=== PATIENT | female | born 1965 | race Caucasian/White ===

== ENCOUNTER 2018-04-15 16:30 | Inpatient (IN) | payer SELFPAY ==
[2018-04-15] VITALS (10 sets, daily range): BP systolic 73–105; BP diastolic 48–78
[~2018-04-15] VITALS: Ht 157.5 cm; Wt 108.0 kg
--- NOTE | 2018-04-15 16:34 | ER Report ---
History and Physical Time Seen By MD: 16:33 (SARAI PATRICK MD) HPI/ROS 53 y/o female with a history of seizures, presents to the ED from Urgent Care with hypoxia, cough, fever, and SOB. Sats in the 60's. Patient does not smoke. Does not drink alcohol. No illicit drugs. Denies abdominal pain. No recent steroids or abx. Remainder of the 14 system rev: Yes (SARAI PATRICK MD) Allergies: Coded Allergies: codeine (Verified Allergy, Severe, 04/15/18) ibuprofen (Verified Allergy, Severe, 04/15/18) morphine (Verified Allergy, Severe, 04/15/18) Home Meds Reported Medications Topiramate (TOPAMAX) 25 Mg Tablet, 25 MG PO QDAY 04/15/18 Reviewed Nurses Notes: Yes Old Medical Records Reviewed: Yes (SARAI PATRICK MD) Hx Smoking: No Smoking Status: Never Smoker Exposure to Second Hand Smoke?: Yes Hx Substance Use Disorder: No Hx Alcohol Use: No (SARAI PATRICK MD) Constitutional Vital Sign - Last 24 Hours 04/15/18 04/15/18 04/15/18 04/15/18 16:35 16:39 16:43 16:43 Temp 100.3 Pulse 114 115 Resp 36 20 B/P (MAP) 102/62 (75) Pulse Ox 84 79 O2 Delivery Non-Rebreather Non-Rebreather O2 Flow Rate 15.0 04/15/18 04/15/18 04/15/18 04/15/18 16:45 16:51 17:00 17:15 Pulse 118 112 114 110 Resp 32 20 24 21 Pulse Ox 79 84 04/15/18 04/15/18 04/15/18 04/15/18 17:17 17:30 17:45 18:00 Pulse 104 97 101 Resp 36 25 36 B/P (MAP) 121/61 (81) 99/82 (88) 70/42 (51) Pulse Ox 85 82 04/15/18 04/15/18 04/15/18 04/15/18 18:02 18:15 18:30 18:45 Pulse 100 101 95 Resp 13 14 27 B/P (MAP) 109/61 (77) 100/62 (75) Pulse Ox 88 86 85 04/15/18 04/15/18 04/15/1826/19 19:00 19:15 19:20 19:30 Pulse 94 92 96 Resp 8 24 34 B/P (MAP) 95/56 (69) 89/50 (63) Pulse Ox 86 85 82 04/15/18 04/15/18 04/15/18 04/15/18 19:32 19:35 19:40 19:50 Pulse 93 91 Resp 30 14 B/P (MAP) 96/54 (68) 93/40 (57) 121/102 (108) Pulse Ox 83 89 04/15/18 04/15/18 04/15/18 04/15/18 20:00 20:05 20:10 20:20 Pulse 90 87 Resp 18 30 B/P (MAP) 95/38 (57) 83/48 (60) 86/46 (59) Pulse Ox 86 85 04/15/18 04/15/18 04/15/18 04/15/18 20:30 20:35 20:40 20:50 Pulse 83 85 Resp 21 9 B/P (MAP) 85/21 (42) 83/52 (62) 78/25 (42) Pulse Ox 85 84 Intake and Output 04/15/18 04/15/18 04/16/18 15:00 23:00 07:00 Intake Total 2250 ml Balance 2250 ml (REJI FLORES MD) Physical Exam General Appearance: The patient is alert, has no immediate need for airway protection and no current signs of toxicity. Eyes: Pupils equal and round no injection. Respiratory: Chest is non tender, lungs are clear but diminished at the bases Cardiac: tachycardia with regular rhythm Gastrointestinal: Abdomen is soft and non tender, no masses, bowel sounds normal. Extremities have full range of motion and are non tender. Skin: No rashes or lesions. DIFFERENTIAL DIAGNOSIS: After history and physical exam differential diagnosis was considered for shortness of breath including but not limited to pulmonary infectious process, COPD, asthma, pulmonary embolus and congestive heart failure. (SARAI PATRICK MD) Medical Decision Making Data Points Result Diagram: 04/15/18 1656 04/15/18 5872 Laboratory Hematology Test 04/15/18 16:56 04/15/18 17:40 04/15/18 17:53 Red Blood Count 4.42 M/uL (4.17-5.56) Mean Corpuscular Volume 86.7 fL (80.0-96.0) Mean Corpuscular Hemoglobin 30.5 pg (26.0-33.0) Mean Corpuscular Hemoglobin Concent 35.1 g/dL (32.0-36.0) Red Cell Distribution Width 14.6 % (11.5-14.5) Mean Platelet Volume 8.9 fL (7.2-11.1) Neutrophils (%) (Auto) 78.7 % (39.4-72.5) Lymphocytes (%) (Auto) 17.4 % (17.6-49.6) Monocytes (%) (Auto) 3.4 % (4.1-12.4) Eosinophils (%) (Auto) 0.0 % (0.4-6.7) Basophils (%) (Auto) 0.5 % (0.3-1.4) Nucleated RBC Relative Count (auto) 0.1 /100WBC Neutrophils # (Auto) 2.1 K/uL (2.0-7.4) Lymphocytes # (Auto) 0.5 K/uL (1.3-3.6) Monocytes # (Auto) 0.1 K/uL (0.3-1.0) Eosinophils # (Auto) 0.0 K/uL (0.0-0.5) Basophils # (Auto) 0.0 K/uL (0.0-0.1) Nucleated RBC Absolute Count (auto) 0.00 K/uL Total Bilirubin 0.4 mg/dl (0.2-1.3) Aspartate Amino Transf (AST/SGOT) 230 U/L (0-35) Alanine Aminotransferase (ALT/SGPT) 70 U/L (0-56) Alkaline Phosphatase 146 U/L (0-126) Total Protein 7.0 g/dl (6.3-8.2) Albumin 3.2 g/dl (3.5-5.0) Lipase 481 U/L (23-300) Influenza Virus Type A (PCR) Positive (NEGATIVE) Influenza Virus Type B (PCR) Negative (NEGATIVE) Chemistry Test 04/15/18 16:56 04/15/18 17:40 04/15/18 17:53 White Blood Count 2.7 k/uL (4.5-11.0) Red Blood Count 4.42 M/uL (4.17-5.56) Hemoglobin 13.5 g/dL (12.0-16.0) Hematocrit 38.3 % (34.0-47.0) Mean Corpuscular Volume 86.7 fL (80.0-96.0) Mean Corpuscular Hemoglobin 30.5 pg (26.0-33.0) Mean Corpuscular Hemoglobin Concent 35.1 g/dL (32.0-36.0) Red Cell Distribution Width 14.6 % (11.5-14.5) Platelet Count 135 K/uL (150-450) Mean Platelet Volume 8.9 fL (7.2-11.1) Neutrophils (%) (Auto) 78.7 % (39.4-72.5) Lymphocytes (%) (Auto) 17.4 % (17.6-49.6) Monocytes (%) (Auto) 3.4 % (4.1-12.4) Eosinophils (%) (Auto) 0.0 % (0.4-6.7) Basophils (%) (Auto) 0.5 % (0.3-1.4) Nucleated RBC Relative Count (auto) 0.1 /100WBC Neutrophils # (Auto) 2.1 K/uL (2.0-7.4) Lymphocytes # (Auto) 0.5 K/uL (1.3-3.6) Monocytes # (Auto) 0.1 K/uL (0.3-1.0) Eosinophils # (Auto) 0.0 K/uL (0.0-0.5) Basophils # (Auto) 0.0 K/uL (0.0-0.1) Nucleated RBC Absolute Count (auto) 0.00 K/uL Total Bilirubin 0.4 mg/dl (0.2-1.3) Aspartate Amino Transf (AST/SGOT) 230 U/L (0-35) Alanine Aminotransferase (ALT/SGPT) 70 U/L (0-56) Alkaline Phosphatase 146 U/L (0-126) Total Protein 7.0 g/dl (6.3-8.2) Albumin 3.2 g/dl (3.5-5.0) Lipase 481 U/L (23-300) Influenza Virus Type A (PCR) Positive (NEGATIVE) Influenza Virus Type B (PCR) Negative (NEGATIVE) (REJI FLORES MD) EKG/Imaging Imaging X-ray: CXR was obtained. I viewed the images myself on the PACS system. My interpretation of the images is: multilobar pneumonia. The radiologist interpretation had no clinically significant variation from this interpretation. (SARAI PATRICK MD) Imaging CT CHEST ABDOMEN PELVIS W/O CON HISTORY: febrile, hypoxic,septic,elevated liver function tests TECHNIQUE: CT imaging was obtained through the chest, abdomen and pelvis without intravenous contrast. One of the following dose optimization techniques was utilized in the performance of this exam: automated exposure control; adjustment of the mA and/or kv according to patient size; or use of iterative reconstruction technique. Specific details can be referenced in the facility's radiology CT exam operational policy. CONTRAST: None COMPARISON: None. FINDINGS: CHEST: Lower neck: Negative. Vessels: Negative. Heart and pericardium: Negative Mediastinum/hilum/lymph nodes: Mild mediastinal lymphadenopathy. Subcarinal l ymph node measures 2.5 x 1.3 cm (image 42). Precarinal lymph node measures 1.9 x 1.2 cm (image 30). Lungs/pleura: Bilateral diffuse bilateral groundglass opacities. No pleural effusion. No pneumothorax. Bones/soft tissues: Negative. Other findings: None significant ABDOMEN/PELVIS: Hepatobiliary: Diffuse hepatic steatosis. Cholecystectomy. Spleen: Mild splenomegaly. Adrenals: 1.3 x 1.1 cm left adrenal gland nodule measuring 2 Hounsfield units consistent with an adenoma. Pancreas: Negative. Kidneys/ureters/bladder: Negative. Bowel/peritoneum/mesentery: Tiny hiatal hernia. Vessels: Negative. Lymph nodes: Negative. Pelvic genitourinary: Negative. Bones/soft tissues: Negative. Other findings: None significant IMPRESSION: 1. Imaging the chest reveals extensive bilateral groundglass opacities with mild lymphadenopathy. Recommend clinical correlation for pneumonia. 2. Imaging of the abdomen and pelvis reveals mild splenomegaly. There is a 1.3 cm left adrenal gland nodule. Report Dictated By: Justin Santoro MD at 04/15/2018 8:13 PM (REJI FLORES MD) ED Course/Re-evaluation ED Course 53-year-old female with both influenza A and multi lobar pneumonia. Patient with transaminitis and leukopenia both consistent with influenza A. Hypoxia improving with nebs and supplemental oxygen. Given abx and Tamiflu. Awaiting CT scan to evaluate abdomen due to elevated lipase, but likely secondary to viral. Will admit for continue abx and supplemental oxygen. Decision to Disposition Date: Apr 15, 2018 Decision to Disposition Time: 18:51 (SARAI PATRICK MD) ED Course I assumed care of this patient from Dr. Patrick at shift change. Patient with pneumonia and sepsis. Having some improvement with oxygen and fluids. Then worsening. We have started Vapotherm and she seems to be improving again. A second liter of fluid to support blood pressure and some improvement again. CT results negative. Admitted to the ICU after discussing with Dr. Escobar. Boris martinez how she will do and may need to consider BiPAP or even intubation if worsening. Decision to Disposition Date: Apr 16, 2018 Decision to Disposition Time: 20:30 (REJI FLORES MD) Depart Departure Latest Vital Signs Vital Signs Date Time Temp Pulse Resp B/P (MAP) Pulse Ox O2 Delivery O2 Flow Rate FiO2 04/15/18 20:50 85 9 78/25 (42) 84 04/15/18 16:43 Non-Rebreather 15.0 04/15/18 16:35 100.3 (REJI FLORES MD) Comment Called to the ICU later to intubate the patient by Dr. Escobar as the patient was worsening despite BiPAP use. Procedure: Rapid sequence intubation. Indication for the procedure was respiratory failure. The patient was preoxygenated with 100% oxygen by bag-valve mask. The patient was given the following IV medications: Versed and succinylcholine. The patient was orally endotracheally intubated using the Glidescope with a 7.5 ETT. Tracheal intubation was confirmed by direct visualization; with misting on the tube; breath sounds were auscultated equally bilaterally; appropriate color change with CO2 detector. The patient was placed on the capnography monitor. Chest X- ray evaluated by Dr. Escobar. The procedure was performed by myself. (REJI FLORES MD) Impression: Primary Impression: Influenza A Additional Impressions: Pneumonia Hypoxia Sepsis Condition: Improved Disposition: Admitted from ER Problem Qualifiers Additional Impressions: Pneumonia Pneumonia type: due to unspecified organism Laterality: bilateral Lung location: lower lobe of lung Qualified Codes: J18.1 - Lobar pneumonia, unspecified organism Sepsis Sepsis type: sepsis due to unspecified organism Qualified Codes: A41.9 - Sepsis, unspecified organism SARAI PATRICK MD Apr 15, 2018 16:34 REJI FLORES MD Apr 16, 2018 04:20
[2018-04-15] MEDS ORDERED: ALBUTEROL/IPRATROPIUM 3 ML NEB ONE (16:40)
[2018-04-15] MEDS ORDERED: NS(*) 0.9% 1000 ML BAG 1,000 ML IV ONE ×3 (16:50→21:10)
[2018-04-15] MEDS ORDERED: ACETAMINOPHEN 500 MG TAB PO ONE (16:50)
[2018-04-15 17:06] LABS: PLATELET COUNT, AUTOMATED 135 K/uL (150-450)
--- NOTE | 2018-04-15 17:28 | RADIOLOGY IMAGING REPORT ---
FACILITY: [facility] - [place] PATIENT NAME: Mounika Chavez : 1965 MR: [id number] V: [id number] EXAM DATE: ORDERING PHYSICIAN: SARAI PATRICK TECHNOLOGIST: Location: [facility] - [place] Patient: Mounika Chavez : 1965 Visit/Account:[id number] Date of Sevice: 04/15/2018 CHEST SINGLE AP HISTORY: fever/cough/sob COMPARISON: None FINDINGS: Cardiomediastinal contours: Normal Lungs and pleura: Patchy bilateral lung infiltrates. No pneumothorax. Bones/soft tissues: Normal Other findings: None significant IMPRESSION: 1. Patchy bilateral lung infiltrates most consistent with pneumonia. Recommend continued radiograph ic surveillance to resolution. Report Dictated By: Justin Santoro MD at 04/15/2018 5:24 PM Report E-Signed By: Justin Santoro MD at 04/15/2018 5:24 PM WSN:[email or web address]
[2018-04-15] MEDS ORDERED: cefTRIAXone 1 GM VIAL IVP ONE (17:40)
[2018-04-15] MEDS ORDERED: AZITHROMYCIN(*) 500 MG 500 MG in NS(*) 0.9% 250 ML BAG 250 ML IVPB ONE (17:40)
--- NOTE | 2018-04-15 18:26 | EKG ---
FACILITY: [facility] PATIENT NAME: MARCIN BAHENA : [id number] MR: [id number] V: [id number] EXAM DATE: ORDERING PHYSICIAN: SARAI PATRICK TECHNOLOGIST: Test Reason : chest pain, SOB Blood Pressure : / mmHG Vent. Rate : 101 BPM Atrial Rate : 101 BPM P-R Int : 130 ms QRS Dur : 074 ms QT Int : 342 ms P-R-T Axes : 062 210 050 degrees QTc Int : 443 ms Sinus tachycardia Diffuse artifact - recommend repeat EKG Abnormal ECG No previous ECGs available Confirmed by DESIREE HAYDEN ([id number]) on 04/15/2018 9:21:17 PM Referred By: Confirmed By:DESIREE HAYDEN
[2018-04-15] MEDS ORDERED: TOPI-119 PO (18:34)
[2018-04-15] MEDS ORDERED: ALBUTEROL 2.5 MG/3 ML NEB NEB ONE (18:40)
[2018-04-15] MEDS ORDERED: OSELTAMIVIR PHOS 75 MG CAP PO ONE ×2 (18:55→23:00)
--- NOTE | 2018-04-15 20:34 | RADIOLOGY IMAGING REPORT ---
FACILITY: [facility] - [place] PATIENT NAME: Mounika Chavez : 1965 MR: [id number] V: [id number] EXAM DATE: ORDERING PHYSICIAN: SARAI PATRICK TECHNOLOGIST: Location: [facility] - [place] Patient: Mounika Chavez : 1965 Visit/Account:[id number] Date of Sevice: 04/15/2018 CT CHEST ABDOMEN PELVIS W/O CON HISTORY: febrile, hypoxic,septic,elevated liver function tests TECHNIQUE: CT imaging was obtained through the chest, abdomen and pelvis without intravenous contras t. One of the following dose optimization techniques was utilized in the performance of this exam: au tomated exposure control; adjustment of the mA and/or kv according to patient size; or use of iterati ve reconstruction technique. Specific details can be referenced in the facility's radiology CT exam o perational policy. CONTRAST: None COMPARISON: None. FINDINGS: CHEST: Lower neck: Negative. Vessels: Negative. Heart and pericardium: Negative Mediastinum/hilum/lymph nodes: Mild mediastinal lymphadenopathy. Subcarinal lymph node measures 2.5 x 1.3 cm (image 42). Precarinal lymph node measures 1.9 x 1.2 cm (image 30). Lungs/pleura: Bilateral diffuse bilateral groundglass opacities. No pleural effusion. No pneumotho rax. Bones/soft tissues: Negative. Other findings: None significant ABDOMEN/PELVIS: Hepatobiliary: Diffuse hepatic steatosis. Cholecystectomy. Spleen: Mild splenomegaly. Adrenals: 1.3 x 1.1 cm left adrenal gland nodule measuring 2 Hounsfield units consistent with an gabriela noma. Pancreas: Negative. Kidneys/ureters/bladder: Negative. Bowel/peritoneum/mesentery: Tiny hiatal hernia. Vessels: Negative. Lymph nodes: Negative. Pelvic genitourinary: Negative. Bones/soft tissues: Negative. Other findings: None significant IMPRESSION: 1. Imaging the chest reveals extensive bilateral groundglass opacities with mild lymphadenopathy. R ecommend clinical correlation for pneumonia. 2. Imaging of the abdomen and pelvis reveals mild splenomegaly. There is a 1.3 cm left adrenal glan d nodule. Report Dictated By: Justin Santoro MD at 04/15/2018 8:13 PM Report E-Signed By: Justin Santoro MD at 04/15/2018 8:29 PM WSN:[email or web address]
[2018-04-15] MEDS ORDERED: KCL 2 MEQ/ML 20 MEQ/10 ML VIAL 20 MEQ in NS(*) 0.9% 1000 ML BAG 1,000 ML IV PRN (21:52)
[2018-04-15] MEDS ORDERED: ACETAMINOPHEN 325 MG TAB PO PRN (21:55)
[2018-04-15] MEDS ORDERED: VANCOMYCIN(*) 1 GM VIAL 1 GM, VANCOMYCIN HCL 0.750 GM VIAL 0.75 GM in NS(*) 0.9% 500 ML... IVPB ONE (22:00)
--- NOTE | 2018-04-15 22:11 | History & Physical ---
History of Present Illness Chief Complaint Cough, short of breath History of Present Illness 53yo female with PMHx significant for seizure following closed head injury. She reports onset of non-productive cough, dyspnea, fevers with chills, myalgias, CALDERON, poor appetite, and diarrhea approximately 48-72 hours ago. Her symptoms continually worsened over this time frame. She denies any rashes or complaints. No abdominal pain. She has had some associated generalized weakness and dizziness/lightheadedness as well. She did not have her flu vaccine this year. She was evaluated in the ER and found to have bilateral infiltrates on CXR, elevated lactate, hypoxia, influenza A screen positive, evidence of dehydration with acute renal failure. She was started on oral Tamiflu and given IV Rocephin and azithromycin. She was also given IV fluid resuscitation. She was recommended for admission. History Problems: (1) Seizure disorder Status: Chronic (2) Closed head injury Status: Chronic (3) History of tubal ligation Status: Resolved Home Meds Reported Medications Topiramate (TOPAMAX) 25 Mg Tablet, 25 MG PO QDAY 04/15/18 Allergies: Coded Allergies: codeine (Verified Allergy, Severe, 04/15/18) ibuprofen (Verified Allergy, Severe, 04/15/18) morphine (Verified Allergy, Severe, 04/15/18) Other Social/Family Hx She is and has 6 grown children. Hx Smoking: No Smoking Status: Never Smoker Exposure to Second Hand Smoke?: Yes Hx Alcohol Use: No Review of Systems Constitutional: Fever, Chills Neurological: Weakness, Dizziness Eyes: No Vision Change, No Loss of Vision ENT: No Hearing Loss Cardiovascular: Chest Pain Respiratory: Shortness of Breath, Cough Gastrointestinal: No Nausea, No Vomiting; Diarrhea; No Hematemesis, No Hematochezia, No Melena, No Abdominal Pain Genitourinary: No Dysuria, No Hematuria, No Urinary Incontinence Musculoskeletal: Pain (diffuse myalgias) Exam Vital Signs Vital Signs Date Time Temp Pulse Resp B/P (MAP) Pulse Ox O2 Delivery O2 Flow Rate FiO2 04/15/18 21:25 82 27 92 04/15/18 21:20 90/65 (73) 04/15/18 21:16 35.0 04/15/18 16:43 Non-Rebreather 04/15/18 16:35 100.3 General Appearance: Alert, Awake Neuro: No Gross deficits Eyes: PERRLA ENT: Oropharynx Clear Neck: No Masses, Other (few small anterior cervical nodes) Cardiovascular: Other (slightly tachycardic regular no murmur) Respiratory: Other (scattered rhonchi with few fine rales bilaterally) Chest: No Tenderness GI: Abd Soft and Non-Tender (BS present) : No CVA Tenderness Extremities: Warm, Perfused Integumentary: Other (no rashes noted) Psych: Alert & Oriented X3 Medical Decision Making Data Points Result Diagram: 04/15/18 1656 04/15/18 1656 Item Value Date Time Influenza Virus Type B (PCR) Negative 04/15/18 175 Influenza Virus Type A (PCR) Positive 04/15/18 1753 Lipase 481 U/L H 04/15/18 1740 Albumin 3.2 g/dl L 04/15/18 1656 Total Protein 7.0 g/dl 04/15/18 1656 Alkaline Phosphatase 146 U/L H 04/15/18 1656 Alanine Aminotransferase (ALT/SGPT) 70 U/L H 04/15/18 1656 Aspartate Amino Transf (AST/SGOT) 230 U/L H 04/15/18 1656 Total Bilirubin 0.4 mg/dl 04/15/18 1656 Calcium Level 7.6 mg/dl L 04/15/18 1656 Lactate 2.2 mmol/L H 04/15/18 1740 EKG / Imaging Imaging PATIENT NAME: Mounika Chavez : 1965 MR: [id number] V: [id number] EXAM DATE: ORDERING PHYSICIAN: SARAI PATRICK TECHNOLOGIST: Location: [facility] Patient: Mounika Chavez : 1965 Visit/Account:[id number] Date of Sevice: 04/15/2018 CHEST SINGLE AP HISTORY: fever/cough/sob COMPARISON: None FINDINGS: Cardiomediastinal contours: Normal Lungs and pleura: Patchy bilateral lung infiltrates. No pneumothorax. Bones/soft tissues: Normal Other findings: None significant IMPRESSION: 1. Patchy bilateral lung infiltrates most consistent with pneumonia. Recommend continued radiographic surveillance to resolution. Report Dictated By: Justin Santoro MD at 04/15/2018 5:24 PM Report E-Signed By: Justin Santoro MD at 04/15/2018 5:24 PM WSN:[email or web address] PATIENT NAME: Mounika Chavez : 1965 MR: [id number] V: [id number] EXAM DATE: [id number] ORDERING PHYSICIAN: SARAI PATRIKC TECHNOLOGIST: Location: [facility] Patient: Mounika Chavez : 1965 Visit/Account:[id number] Date of Sevice: 04/15/2018 CT CHEST ABDOMEN PELVIS W/O CON HISTORY: febrile, hypoxic,septic,elevated liver function tests TECHNIQUE: CT imaging was obtained through the chest, abdomen and pelvis without intravenous contrast. One of the following dose optimization techniques was utilized in the performance of this exam: automated exposure control; adjustment of the mA and/or kv according to patient size; or use of iterative reconstruction technique. Specific details can be referenced in the facility's radiology CT exam operational policy. CONTRAST: None COMPARISON: None. FINDINGS: CHEST: Lower neck: Negative. Vessels: Negative. Heart and pericardium: Negative Mediastinum/hilum/lymph nodes: Mild mediastinal lymphadenopathy. Subcarinal lymph node measures 2.5 x 1.3 cm (image 42). Precarinal lymph node measures 1.9 x 1.2 cm (image 30). Lungs/pleura: Bilateral diffuse bilateral groundglass opacities. No pleural effusion. No pneumothorax. Bones/soft tissues: Negative. Other findings: None significant ABDOMEN/PELVIS: Hepatobiliary: Diffuse hepatic steatosis. Cholecystectomy. Spleen: Mild splenomegaly. Adrenals: 1.3 x 1.1 cm left adrenal gland nodule measuring 2 Hounsfield units consistent with an adenoma. Pancreas: Negative. Kidneys/ureters/bladder: Negative. Bowel/peritoneum/mesentery: Tiny hiatal hernia. Vessels: Negative. Lymph nodes: Negative. Pelvic genitourinary: Negative. Bones/soft tissues: Negative. Other findings: None significant IMPRESSION: 1. Imaging the chest reveals extensive bilateral groundglass opacities with mild lymphadenopathy. Recommend clinical correlation for pneumonia. 2. Imaging of the abdomen and pelvis reveals mild splenomegaly. There is a 1.3 cm left adrenal gland nodule. Report Dictated By: Justin Santoro MD at 04/15/2018 8:13 PM Report E-Signed By: Justin Santoro MD at 04/15/2018 8:29 PM WSN:[email or web address] Assessment and Plan Problems: (1) Pneumonia Status: Acute Assessment & Plan: She has an acute community acquired bilateral pneumonia. She could have influenza as the etiology, but is also at risk for bacterial pneumonia. Will place on Tamiflu 75mg PO BID for at least 5 days. She will also be placed on IV Rocephin, azithromycin, and vancomycin. Will give supplemental oxygen and respiratory treatments as well. Watch closely in the ICU. (2) Influenza A Status: Acute Assessment & Plan: She will be on the Tamiflu 75mg PO BID for a minimum of 5 days. Will have her contacts notified for possible prophylaxis. (3) Dehydration Status: Acute Assessment & Plan: She has received IV fluid resuscitation in the ER. Will continue IV fluids. Watch labs, UOP, lactate. (4) Acute renal failure Status: Acute Assessment & Plan: Due to dehydration and acute infection. Will give generous IV fluids. Watch UOP, labs. (5) Seizure disorder Status: Chronic Assessment & Plan: Continue low dose topiramate. Venous Thromboembolism Antithrombotics Is Pt On Any Antithrombotics?: No Prophylaxis Tx Contraindicated Pharmacological Contraindicati: Low Platelet Count Exam Sepsis Risk: Possible Sepsis Risk Problem Qualifiers (1) Pneumonia: Pneumonia type: due to unspecified organism Laterality: bilateral Lung location: lower lobe of lung Qualified Codes: J18.1 - Lobar pneumonia, unspecified organism DESIREE HAYDEN MD Apr 15, 2018 22:11
[2018-04-15] MEDS ORDERED: VANCOMYCIN 1 GM VIAL ONE (23:18)
[2018-04-15] MEDS ORDERED: OSELTAMIVIR PHOS 75 MG CAP ONE (23:21)
[2018-04-15] MEDS ORDERED: KCL/NS* 20 MEQ/1000 ML PREMIX 1,000 ML IV SCH (23:30)
[2018-04-15] MEDS ORDERED: NS(*) 0.9% 250 ML BAG 250 ML ONE (23:44)
[2018-04-15] MEDS ORDERED: CALCIUM GLUC(*)10% 100MG/ML VL 1,000 MG in NS(*) 0.9% 100 ML BAG 100 ML IVPB ONE (23:50)
[2018-04-15] MEDS ORDERED: IV BOLUS 500 ML IVSOL IV ONE (23:50)
[2018-04-15] MEDS: NYSTATIN 100,000 U/GM PWD 15GM TP SCH (23:55)
[2018-04-16] VITALS (123 sets, daily range): BP systolic 62–174; BP diastolic 40–136
[2018-04-16] MEDS ORDERED: VANCOMYCIN(*) 1 GM VIAL 1 GM, VANCOMYCIN HCL 0.750 GM VIAL 0.75 GM in NS(*) 0.9% 500 ML... IVPB ONE
[2018-04-16] MEDS ORDERED: VANCOMYCIN 1 GM VIAL ONE (00:17)
[2018-04-16] MEDS ORDERED: NS(*) 0.9% 500 ML BAG 500 ML ONE (00:22)
[2018-04-16] MEDS ORDERED: NS(*) 0.9% 100 ML BAG 100 ML ONE (02:46)
[2018-04-16] MEDS ORDERED: MIDAZOLAM 50 MG/10 ML VIAL IV ONE (02:57)
[2018-04-16] MEDS ORDERED: NS(*) 0.9% 250 ML BAG 250 ML ONE (02:58)
[2018-04-16] MEDS: MIDAZOLAM 50 MG/10 ML VIAL 250 MG in NS(*) 0.9% 250 ML BAG 200 ML IV PRN (03:08)
--- NOTE | 2018-04-16 03:14 | Miscellaneous Provider Note ---
Miscellaneous Provider Note Note Patient had fairly sudden onset of increased dyspnea, tachypnea, hypoxia with large amounts of thin almost frothy sputum. We were unable to maintain adequate oxygen saturations with high flow O2. It appeared she was at "near respiratory failure" and would need intubation and mechanical ventilation. This was accomplished with the help of Dr. Fitzgerald. Post-intubation film shows good tube placement with increased bilateral infiltrates. It appears she will need paralytic agent in addition to sedation to maintain concordance with the ventilator. Will follow ABGs closely to monitor ventilation. DESIREE HAYDEN MD Apr 16, 2018 03:14
--- NOTE | 2018-04-16 03:21 | RADIOLOGY IMAGING REPORT ---
FACILITY: [facility] PATIENT NAME: Mounika Chavez : 1965 MR: [id number] V: [id number] EXAM DATE: ORDERING PHYSICIAN: DESIREE HAYDEN TECHNOLOGIST: Location: [facility] [place] Patient: Mounika Chavez : 1965 Visit/Account:[id number] Date of Sevice: 04/16/2018 Study: Single portable view of the chest. Indication: Status post intubation Comparison study: April 15, 2018 Technique: Single portable AP view the chest demonstrates the presence of an endotracheal tube with t he tip 4 cm above the level of the jese. There are extensive bilateral confluent infiltrates presen t. This has worsened as compared to the previous study. There is no evidence of pleural effusion or p neumothorax. IMPRESSION: Status post intubation. There are worsening bilateral confluent diffuse infiltrates prese nt. Report Dictated By: Landry Major at 04/16/2018 2:55 AM Report E-Signed By: Landry Major at 04/16/2018 2:57 AM WSN:[id number]
--- NOTE | 2018-04-16 03:44 | RADIOLOGY IMAGING REPORT ---
FACILITY: [facility] - [place], [place] PATIENT NAME: Mounika Chavez : 1965 MR: [id number] V: [id number] EXAM DATE: ORDERING PHYSICIAN: DESIREE HAYDEN TECHNOLOGIST: Location: [facility] Patient: Mounika Chavez : 1965 Visit/Account:[id number] Date of Sevice: 04/16/2018 AP CHEST 04/16/2018 3:17 AM. INDICATION: Nasogastric tube placement. COMPARISON: Same-day radiograph. . FINDINGS: Endotracheal tube terminates in the mid thoracic trachea. Esophagogastric tube terminates in the sto mach with all sideholes in the stomach lumen. Extensive bilateral mixed opacification similar to leonel or. No definite pleural effusion or pneumothorax. Heart size is unchanged. IMPRESSION: Esophagogastric tube appears appropriately positioned, otherwise not significantly change d. Report Dictated By: Kayode Walter MD at 04/16/2018 3:39 AM Report E-Signed By: Kayode Walter MD at 04/16/2018 3:41 AM WSN:[id number]
[2018-04-16] MEDS ORDERED: NS(*) 0.9% 1000 ML BAG 1,000 ML ONE ×3 (04:04→05:07)
[2018-04-16] MEDS ORDERED: ACETAMINOPHEN(*)1000 MG/100 ML 100 ML IVPB ONE (04:37)
--- NOTE | 2018-04-16 04:53 | RADIOLOGY IMAGING REPORT ---
FACILITY[place] [facility] [place] PATIENT NAME: Mounika Chavez : 1965 MR: [id number] V: [id number] EXAM DATE: ORDERING PHYSICIAN: DESIREE HAYDEN TECHNOLOGIST: Location: [facility] - [place] Patient: Mounika Chavez : 1965 Visit/Account:[id number] Date of Sevice: 04/16/2018 AP CHEST 04/16/2018 3:15 AM. INDICATION: Catheter placement. COMPARISON: Same-day radiograph. FINDINGS/IMPRESSION: Endotracheal and esophagogastric tubes appear appropriately positioned. New right subclavian central venous catheter terminates near the superior cavoatrial junction. Bilateral mixed opacification is not significantly changed. No definite pleural effusion or pneumothorax. Heart size is unchanged. Report Dictated By: Kayode Walter MD at 04/16/2018 4:47 AM Report E-Signed By: Kayode Walter MD at 04/16/2018 4:49 AM WSN:[id number]
--- NOTE | 2018-04-16 05:19 | Procedure Note ---
Central Line Procedure Note Consent Signed: No Central Line Lumen: Triple Central Line Procedure: Chlorhexidine Prep, Sterile Drapes Applied, Sterile Dressing Applied Central Line Position: R Subclavian Anesthesia Used: 1% Lidocaine CC's of Anesthesia: 2 Complications: None Central Line Post Position: Sutured, Confirmed Blood Return, Position Confirmed w/CXR SKINNY PATTERSON MD Apr 16, 2018 05:19
--- NOTE | 2018-04-16 05:22 | Procedure Note ---
ART Line Procedure Note Consent Signed: No ART Line Indication: Hemodynamic Monitoring, Other (multiple ABG's) ART Line Lumen: Single Line Procedure: Chlorhexidine Prep, Sterile Drapes Applied, Sterile Dressing Applied Complications: None Line Post Position: Confirmed Blood Return Comment Multiple attempts at right radial arterial line were unsuccessful despite US guidance. Left radial arterial line successful with single attempt. Good waveform. Secured with OP site and tape. SKINNY PATTERSON MD Apr 16, 2018 05:22
[2018-04-16] MEDS ORDERED: FUROSEMIDE 20 MG/2 ML VIAL ONE (05:33)
[2018-04-16] MEDS ORDERED: FUROSEMIDE 20 MG/2 ML VIAL IVP ONE (05:35)
[2018-04-16] MEDS ORDERED: ALBUMIN HUMAN 5% 250 ML BTL 250 ML IVPB ONE ×2 (05:50→09:20)
[2018-04-16] MEDS: ROCURONIUM BR(*)10 MG/ML 10 ML 500 MG in NS(*) 0.9% 500 ML BAG 450 ML IVPB SCH ×2 (05:52→20:38)
[2018-04-16] MEDS: NS(*) 0.9% 500 ML BAG 500 ML ONE ×2 (05:52)
[2018-04-16] MEDS ORDERED: NOREPINE BITAR* 4 MG/4 ML AMP 4 MG in D5W(*) 250 ML BAG 246 ML IV PRN (05:55)
[2018-04-16] MEDS ORDERED: LEVOPHED KIT (*) 1 IVSOL 1 KIT IV ONE (05:56)
[2018-04-16 05:59] LABS: PLATELET COUNT, AUTOMATED 125 K/uL (150-450)
[2018-04-16] MEDS ORDERED: HYDROCORTISONE 100 MG/2 ML IVP SCH (06:00)
[2018-04-16] MEDS ORDERED: CALCIUM GLUC(*)10% 100MG/ML VL 1,000 MG in NS(*) 0.9% 100 ML BAG 100 ML IVPB ONE (07:00)
[2018-04-16] MEDS ORDERED: MAGNESIUM SUL* 2 GM/50 ML IVPB 50 ML IVPB ONE (08:00)
[2018-04-16] MEDS ORDERED: OSELTAMIVIR PHOS 30 MG CAP FT SCH (09:00)
[2018-04-16] MEDS ORDERED: OSELTAMIVIR PHOS 75 MG CAP PO SCH (09:00)
[2018-04-16] MEDS ORDERED: TOPIRAMATE 25 MG TAB PO SCH (09:00)
[2018-04-16] MEDS ORDERED: OSELTAMIVIR PHOS 30 MG CAP PO SCH (09:00)
[2018-04-16] MEDS: OSELTAMIVIR PHOS 75 MG CAP FT SCH ×2 (09:10→21:34)
[2018-04-16] MEDS: TOPIRAMATE 25 MG TAB FT SCH (09:12)
[2018-04-16] MEDS: HYDROCORTISONE 100 MG/2 ML IVP SCH ×2 (09:17→17:08)
[2018-04-16] MEDS ORDERED: HYDROCORTISONE 100 MG/2 ML ONE (09:22)
[2018-04-16] MEDS: NYSTATIN 100,000 U/GM PWD 15GM TP SCH ×2 (10:17→21:35)
[2018-04-16] MEDS ORDERED: KCL/NS* 20 MEQ/1000 ML PREMIX 1,000 ML IV PRN (10:20)
[2018-04-16] MEDS: ORAL SUCTION/CHLORHX/SWAB KIT MT SCH ×2 (11:15→21:34)
[2018-04-16] MEDS: VANCOMYCIN(*) 1 GM VIAL 1 GM, VANCOMYCIN (*) 0.5 GM VIAL 0.25 GM in NS(*) 0.9% 250 ML B... IVPB SCH (11:48)
--- NOTE | 2018-04-16 12:16 | Medical Nutrition Therapy ---
Nutrition Anthropometrics Height (Inches): 62.00 Height (Calculated Centimeters: 157.645272 Weight (Pounds): 212 Weight (Calculated Kilograms): 96.162 BMI: 38.8 Juan A Nutrition Score: Adequate Juan A Nutrition Risk Score: 17 Dietary Referral Nutrition Risk Factors: Nutrition Risk Comment: Physical Findings Physical Appearance: Obese BMI 30-39 Skin Appearance Skin Appearance: Edema Edema Location Modifier: Edema Location: Type of Edema: Degree of Edema: Gastrointestinal Symptoms GI Symtoms: Tube Present: Bowel Sounds: Recent Bowel Pattern: Stool Characteristics: Nutritional Diagnosis Nutritional Risk Acuity 1: Acute/ES Renal, Pulm Fail Vent Nutritional Risk Acuity 2: Pr Appetite > 3d Nutritional Acuity: 1-High Nutrition Diagnosis: Inadequate Food Intake Nutrition Etiology: Physiological Causes Nutrition Problem/Etiology/Sym: AEB NPO and on mech vent Energy Requirement: 1985 ([place]) Protein Requirement: 76 (.8gm/kg) Fluid Requirement: 2400 (25ml/kg) Diet Type: NPO (Nothing by Mouth) Nutrition Intervention: Incr diet as tolerated Nutrition Monitoring & Eval Nutrition Goals: Eat 75-100% Meal RD Patient Assessment Time: [address] Assessment Type: RD Assessment Patient Nutrition Acuity: 1-High Follow Up Date: Apr 18, 2018 Nutritional Comment: Pt admitted for pneumonia with influenza A and ARF. Pt currently NPO and on mech vent. Nutr significant labs: alb 2.3, BUN 31, creatinine 1.3, BG 158-210. Pt reported 3 day poor appetite prior to admit. BMI is in class 2 obesity range. Pt does not have dx of diabetes but random BG > 200 is diagnosis for diabetes. Will cont to monitor. CARA CUNNINGHAM Apr 16, 2018 12:16
--- NOTE | 2018-04-16 12:51 | RADIOLOGY IMAGING REPORT ---
FACILITY: [facility] PATIENT NAME: Mounika Chavez : 1965 MR: [id number] V: [id number] EXAM DATE: ORDERING PHYSICIAN: DESIREE HAYDEN TECHNOLOGIST: Location: [facility] - [place] Patient: Mounika Chavez : 1965 Visit/Account:[id number] Date of Sevice: 04/16/2018 CHEST SINGLE AP HISTORY: Respiratory failure. COMPARISON: Chest x-ray April 16, 2018 at 0409 hours. FINDINGS: Cardiomediastinal contours: The heart maybe mildly enlarged. Lungs and pleura: Again noted are bilateral peripheral findings of parenchymal disease/groundglass de nsity. There is probably bibasilar atelectasis and small bilateral pleural effusions as well. The fin dings are worrisome for pneumonia, but entities such as pulmonary edema may be a consideration. Bones/soft tissues: There are no findings of a fracture. Catheters: The endotracheal tube, right clavian vein catheter and nasogastric tube are in stable posi tion. IMPRESSION: 1. Cardiomegaly with stable bilateral parenchymal infiltrates. 2. Stable position of endotracheal tube, nasogastric tube and right subclavian vein catheter. Report Dictated By: Paco Glasgow MD at 04/16/2018 12:45 PM Report E-Signed By: Paco Glasgow MD at 04/16/2018 12:46 PM WSN:[id number]
[2018-04-16] MEDS ORDERED: METOPROLOL TART 5 MG/5 ML VIAL IVP ONE (13:00)
--- NOTE | 2018-04-16 14:15 | Pharmacy Note ---
Vancomycin Management Note Vanco Dosing Note Pharmacy Services Pharmacokinetic Dosing Consult, Vancomycin Pharmacy has been consulted for dosing and monitoring of vancomycin for JOSEF (53 YO FEMALE) for SEPSIS (indication). Pertinent Past Medical History: * Antibiotics prior to admission; UNKNOWN {YES/NO/UNKNOWN} Additional Antimicrobials: AZITHROMYCIN 500MG IV QD Start 04/15/18 CEFTRIAXONE 1G IV PUSH QD Start 04/15/18 TAMIFLU 75MG BID Start 04/15/18 Patient Information: Height (cm): 157.5 Actual Body Weight (ABW): 96.2KG Pertinent Lab Tests WHITE BLOOD COUNT 2.5 NEUTROPHILS 1.9 BLOOD UREA NITROGEN 31 SCR 1.3 Culture Results: BLOOD * URINE * SPUTUM * WOUND * Assessment: CrCl 40 Renal function is IMPROVING (Stable, improving) Vancomycin Monitoring Assessment Goal Vancomycin Trough Level: 15-20 Plan: 1) Vancomycin 25 mg/kg loading dose (based on ABW): 1750 mg IV x 1 was given 04/16/18 at 0000 2) Vancomycin maintenance dose (based on ABW): 1250mg Q12H was ordered for maintenance 3) Vancomycin monitoring: Renal function is improving, however this patient is obese and at risk for accumulation. Recommended checking a random level before the 3rd dose. Hospitalist was agreeable with that plan since patient's renal function is near the cutoff between Q24/Q12 dosing and improving. Random Vanco level ordered for 04/16/18 at 2300 CHANG NEWMAN Apr 16, 2018 13:58
--- NOTE | 2018-04-16 15:59 | Hospitalist Progress Note ---
Subjective Progress Notes Subjective 53F with acute hypoxic respiratory failure. Remains intubated and sedated, clinical picture consistent with ARDS. Physical Exam Vital Signs Date Time Temp Pulse Resp B/P (MAP) Pulse Ox O2 Delivery O2 Flow Rate FiO2 04/16/18 15:21 90.0 04/16/18 13:39 81 04/16/18 07:15 98.7 04/16/18 06:35 108 30 75/42 (53) Mechanical Ventilator 04/16/18 01:00 40.0 Intake and Output 04/16/18 06:59 Intake Total 4056 ml Output Total 900 ml Balance 3156 ml Intake Oral 0 ml IV Total 4056 ml Output Urine Total 900 ml # Bowel Movements 1 Neuro: No Gross deficits Cardiovascular: Normal Rhythm & Peripheral Pulses Respiratory: Other (intubated, sedated, paralyzed) GI: Soft and Non-Tender Extremities: Soft and Non Tender, Warm, Pulses, Perfused Integumentary: Skin Intact without Lesion / Mass Result Diagram: 04/16/18 0520 04/16/18 0420 Assessment and Plan Problems: (1) ARDS (adult respiratory distress syndrome) Status: Acute Assessment & Plan: CXR bilateral patchy infiltrate, difficulties oxygenating after intubation. SIMV 6ml/kg (Vt 0.3), PEEP 18, rate 34, FIO2 0.9. ABG shows C O2 retention as expected, permissive hypercapnia goal pH 7.25, pO2 is within accepted range per ARDSnet. Plateau borderline at 30. Begin sodium bicarb to improve acidosis while kidneys regulate, anticipate improvement over 36-48 hours. (2) Pneumonia Status: Acute Assessment & Plan: She has an acute community acquired bilateral pneumonia. She could have influenza as the etiology, but is also at risk for bacterial pneumonia. Tamiflu 75mg PO BID for at least 5 days as well as IV Rocephin, azithromycin, and vancomycin. Clinical picture consistent with ARDS now intubated and sedated. (3) Influenza A Status: Acute Assessment & Plan: She will be on the Tamiflu 75mg PO BID for a minimum of 5 days. (4) Dehydration Status: Acute Assessment & Plan: She has received IV fluid resuscitation in the ER. Will continue IV fluids. Watch labs, UOP, lactate. (5) Acute renal failure Status: Acute Assessment & Plan: Due to dehydration and acute infection. Improved. (6) Seizure disorder Status: Chronic Assessment & Plan: Continue low dose topiramate. (7) Hypokalemia Assessment & Plan: Replete PRN. (8) Hypocalcemia Assessment & Plan: Corrected to 8.0 for albumin this am, worsened with de creasing pH despite Ca replacement today. Will check EKG. Exam Sepsis Risk: Severe Sepsis Risk Problem Qualifiers (1) Pneumonia: Pneumonia type: due to unspecified organism Laterality: bilateral Lung location: lower lobe of lung Qualified Codes: J18.1 - Lobar pneumonia, unspecified organism CHERELLE PORTER DO Apr 16, 2018 15:59
[2018-04-16] MEDS: cefTRIAXone 1 GM VIAL IVP SCH (16:15)
[2018-04-16] MEDS: AZITHROMYCIN(*) 500 MG 500 MG in NS(*) 0.9% 250 ML BAG 250 ML IVPB SCH (16:21)
[2018-04-16] MEDS: SODIUM BICAR 8.4%* 50 MEQ/50ML 150 MEQ in D5W(*) 1000 ML BAG 1,000 ML IV SCH (16:25)
--- NOTE | 2018-04-16 18:55 | EKG ---
FACILITY: [facility] PATIENT NAME: MARCIN BAHENA : [id number] MR: [id number] V: [id number] EXAM DATE: ORDERING PHYSICIAN: CHERELLE CROWELL TECHNOLOGIST: Test Reason : hypocalcemia Blood Pressure : / mmHG Vent. Rate : 108 BPM Atrial Rate : 108 BPM P-R Int : 138 ms QRS Dur : 074 ms QT Int : 348 ms P-R-T Axes : 075 056 057 degrees QTc Int : 466 ms Sinus tachycardia Low voltage QRS Borderline ECG When compared with ECG of 15-APR-2018 17:26, Criteria for Inferior infarct are no longer present Confirmed by Cherelle Espino ([id number]) on 04/16/2018 10:49:56 PM Referred By: Confirmed By:Cherelle Crowell
[2018-04-17] VITALS (107 sets, daily range): BP systolic 86–134; BP diastolic 45–75
[2018-04-17] MEDS: VANCOMYCIN(*) 1 GM VIAL 1 GM, VANCOMYCIN (*) 0.5 GM VIAL 0.25 GM in NS(*) 0.9% 250 ML B... IVPB SCH (00:23)
[2018-04-17] MEDS: HYDROCORTISONE 100 MG/2 ML IVP SCH ×3 (00:23→17:36)
[2018-04-17] MEDS: SODIUM BICAR 8.4%* 50 MEQ/50ML 150 MEQ in D5W(*) 1000 ML BAG 1,000 ML IV SCH (01:22)
[2018-04-17 06:29] LABS: PLATELET COUNT, AUTOMATED 97 K/uL (150-450)
[2018-04-17] MEDS: ALBUTEROL/IPRATROPIUM 3 ML NEB NEB SCH ×3 (08:37→17:36)
[2018-04-17] MEDS ORDERED: ENOXAPARIN 40 MG/0.4ML SYR SC SCH (09:00)
[2018-04-17] MEDS: PANTOPRAZOLE SOD 40 MG IV VIAL IVP SCH (09:13)
[2018-04-17] MEDS: TOPIRAMATE 25 MG TAB FT SCH (09:18)
[2018-04-17] MEDS: OSELTAMIVIR PHOS 75 MG CAP FT SCH ×2 (09:19→20:24)
[2018-04-17] MEDS: ORAL SUCTION/CHLORHX/SWAB KIT MT SCH ×2 (09:20→20:25)
[2018-04-17] MEDS: NYSTATIN 100,000 U/GM PWD 15GM TP SCH ×2 (09:21→20:25)
--- NOTE | 2018-04-17 10:36 | Hospitalist Progress Note ---
Subjective Progress Notes Subjective This patient was admitted for respiratory failure secondary to influenza. She has remained paralyzed on the ventilator overnight. Patient Complains of: Cardiovascular: No: Chest Pain Respiratory: No: Shortness of Breath Physical Exam Vital Signs Date Time Temp Pulse Resp B/P (MAP) Pulse Ox O2 Delivery O2 Flow Rate FiO2 04/17/18 09:57 60.0 04/17/18 08:38 104 04/17/18 08:38 91 Mechanical Ventilator 04/17/18 06:30 34 95/61 (72) 04/17/18 06:20 98.6 04/16/18 01:00 40.0 Intake and Output 04/17/18 07:00 Intake Total 5187.7 ml Output Total 2065 ml Balance 3122.7 ml IV Total 3382.7 ml Other 1805 ml Output Urine Total 1565 ml Gastric Drainage Total 500 ml Neuro: Other (Paralyzed.) Cardiovascular: Regular Rate and Rhythm Respiratory: Other (Bilateral breath sounds present.) Extremities: No Edema Integumentary: No Cyanosis Result Diagram: 04/17/18 0520 04/17/18 0520 Item Value Date Time Arterial Blood pH 7.23 L 04/17/18 0942 Arterial Blood Partial Pressure CO2 70 mmHg *H 04/17/18 0942 Arterial Blood Partial Pressure O2 59 mmHg L 04/17/18 0942 Arterial Blood HCO3 29 mmol/L H 04/17/18 0942 Item Value Date Time Blood Culture - Preliminary Resulted 04/15/18 1804 Blood Peripheral Draw NO GROWTH AFTER 2 DAYS, REINCUBATED Blood Culture - Preliminary Resulted 04/15/18 1656 Blood Peripheral Draw NO GROWTH AFTER 2 DAYS, REINCUBATED Assessment and Plan Problems: (1) Influenza A Status: Acute Assessment & Plan: She did test positive for influenza A. She has been started on Tamiflu. (2) ARDS (adult respiratory distress syndrome) Status: Acute Assessment & Plan: She does have bilateral patchy infiltrates and difficulties oxygenating after intubation. She is currently paralyzed and on AC. We are adjusting her ventilator settings, and will try to wean off the rocuronium today. (3) Bacterial pneumonia Assessment & Plan: Bilateral infiltrates are noted on her chest x-ray. She was started on empiric antibiotics given the severity of her illness. Cultures are pending. (4) Sepsis Status: Acute Assessment & Plan: She did have a fever and elevated lactate level. She is on IV fluids and stress dose hydrocortisone. (5) Acute renal failure Status: Acute Assessment & Plan: She did have a bump in her creatinine overnight. We have increased her IV fluids. (6) Seizure disorder Status: Chronic Assessment & Plan: She is on chronic treatment with topiramate, which is being given through the feeding tube. (7) Hypokalemia Assessment & Plan: Resolved. (8) Hypocalcemia Assessment & Plan: She is scheduled to receiving calcium today. Exam Sepsis Risk: Severe Sepsis Risk Problem Qualifiers (1) Sepsis: Sepsis type: sepsis due to unspecified organism Qualified Codes: A41.9 - Sepsis, unspecified organism NALINI YOUNG DO Apr 17, 2018 10:36
[2018-04-17] MEDS: NS(*) 0.9% 1000 ML BAG 1,000 ML IV PRN ×2 (10:52→20:39)
[2018-04-17] MEDS ORDERED: CALCIUM GLUC(*)10% 100MG/ML VL 1,000 MG in NS(*) 0.9% 100 ML BAG 100 ML IVPB ONE (11:15)
[2018-04-17] MEDS: INSULIN HUM LISPRO 100 UN/ML 3 ML VIAL SUBQ PRN ×2 (12:09→18:28)
[2018-04-17] MEDS: ROCURONIUM BR(*)10 MG/ML 10 ML 500 MG in NS(*) 0.9% 500 ML BAG 450 ML IVPB SCH (12:17)
[2018-04-17] MEDS ORDERED: ROCURONIUM BR(*)10 MG/ML 10 ML 500 MG in NS(*) 0.9% 500 ML BAG 450 ML IVPB PRN (13:15)
[2018-04-17] MEDS: cefTRIAXone 1 GM VIAL IVP SCH (17:35)
[2018-04-17] MEDS: AZITHROMYCIN(*) 500 MG 500 MG in NS(*) 0.9% 250 ML BAG 250 ML IVPB SCH (17:50)
[2018-04-17] MEDS: ACETAMINOPHEN(*)1000 MG/100 ML 100 ML IVPB PRN (20:24)
[2018-04-17] MEDS: MIDAZOLAM 50 MG/10 ML VIAL 250 MG in NS(*) 0.9% 250 ML BAG 200 ML IV PRN (20:39)
[2018-04-18] VITALS (90 sets, daily range): BP systolic 88–129; BP diastolic 37–75
[2018-04-18] MEDS: HYDROCORTISONE 100 MG/2 ML IVP SCH ×3 (00:32→17:15)
[2018-04-18] MEDS: INSULIN HUM LISPRO 100 UN/ML 3 ML VIAL SUBQ PRN ×4 (00:32→18:02)
[2018-04-18] MEDS: ALBUTEROL/IPRATROPIUM 3 ML NEB NEB SCH ×4 (05:17→17:05)
[2018-04-18] MEDS: NS(*) 0.9% 1000 ML BAG 1,000 ML IV PRN ×4 (06:04→18:38)
--- NOTE | 2018-04-18 06:32 | RADIOLOGY IMAGING REPORT ---
FACILITY: [facility] PATIENT NAME: Mounika Chavez : 1965 MR: [id number] V: [id number] EXAM DATE: ORDERING PHYSICIAN: NALINI YOUNG TECHNOLOGIST: Location: [facility] Patient: Mounika Chavez : 1965 Visit/Account:[id number] Date of Sevice: 04/18/2018 AP CHEST 04/18/2018 6:00 AM. INDICATION: Intubated. RAD COMPARISON: 04/16/2018. FINDINGS: Support line and tubes are unchanged. Lung expansion is decreased with increased bibasilar atelectas is. Other bilateral mixed opacification and probable small pleural effusions are similar to prior. No pneumothorax. Heart size is likely unchanged. IMPRESSION: Decreased expansion with increased atelectasis, otherwise unchanged. Report Dictated By: Kayode Walter MD at 04/18/2018 6:26 AM Report E-Signed By: Kayode Walter MD at 04/18/2018 6:28 AM [id number]
[2018-04-18 06:36] LABS: PLATELET COUNT, AUTOMATED 99 K/uL (150-450)
[2018-04-18] MEDS: PANTOPRAZOLE SOD 40 MG IV VIAL IVP SCH (09:06)
[2018-04-18] MEDS: OSELTAMIVIR PHOS 75 MG CAP FT SCH (09:09)
[2018-04-18] MEDS: ORAL SUCTION/CHLORHX/SWAB KIT MT SCH ×2 (09:09→21:32)
[2018-04-18] MEDS: TOPIRAMATE 25 MG TAB FT SCH (09:09)
[2018-04-18] MEDS: NYSTATIN 100,000 U/GM PWD 15GM TP SCH ×2 (09:10→21:31)
--- NOTE | 2018-04-18 10:07 | Medical Nutrition Therapy ---
Nutrition Anthropometrics Height (Inches): 62.00 Height (Calculated Centimeters: 157.195566 Weight (Pounds): 223 Weight (Calculated Kilograms): 101.293 BMI: 38.8 Juan A Nutrition Score: Very Poor Juan A Nutrition Risk Score: 8 Dietary Referral Nutrition Risk Factors: Nutrition Risk Comment: Physical Findings Physical Appearance: Obese BMI 30-39 Skin Appearance Skin Appearance: Edema Edema Location Modifier: Edema Location: Type of Edema: Degree of Edema: Gastrointestinal Symptoms GI Symtoms: Tube Present: OG Bowel Sounds: Recent Bowel Pattern: Stool Characteristics: Nutritional Diagnosis Nutritional Risk Acuity 1: Acute/ES Renal, Pulm Fail Vent Nutritional Risk Acuity 2: Pr Appetite > 3d Nutritional Acuity: 1-High Nutrition Diagnosis: Increased Nutrient Needs Nutrition Etiology: Physiological Causes Nutrition Problem/Etiology/Sym: AEB on mech vent Energy Requirement: 1985 ([place]) Protein Requirement: 76 (.8gm/kg) Fluid Requirement: 2400 (25ml/kg) Diet Type: NPO (Nothing by Mouth), Tube Feeding (TF) Nutrition Intervention: Nutrition support, Incr diet as tolerated Nutritional Support Current Enteral / Parental: Tube Feeding Tube Feeding Formulas: Glucerna 1cal/ml-Diabetic Tube Feeding Supplement Streng: Full Feeding Route: FT Placed Oralgastric Rate: initiate at 30ml/hr increase 10ml q 4 hrs to final rate 80ml/hr Current Duration: 24 Current Calories: 1920 (based on final rate) Current Protein: 80 (based on final rate) Nutrition Monitoring & Eval Nutritional Goals Comment: enteral nutrtion will meet nutr needs until oral intake can meet needs. RD Patient Assessment Time: [address] Assessment Type: Nutrition Support Consult Patient Nutrition Acuity: 1-High Follow Up Date: Apr 21, 2018 Nutritional Comment: Pt admitted for pneumonia with influenza A and ARF. Pt currently NPO and on mech vent. Nutr significant labs: alb 2.3, BUN 31, creatinine 1.3, BG 158-210. Pt reported 3 day poor appetite prior to admit. BMI is in class 2 obesity range. Pt does not have dx of diabetes but random BG > 200 is diagnosis for diabetes. Will cont to monitor. BK 04/18 Enteral nutrition initiated. Final rate of 80ml/hr Glucerna will meet 97% est kcal and 105% est protein needs. BMI is in class 3 obesity range. Goal is to provide adequate kcal but not excessive. will cont to monitor. CARA CUNNINGHAM Apr 18, 2018 10:07
--- NOTE | 2018-04-18 11:22 | Hospitalist Progress Note ---
Subjective Progress Notes Subjective 53M admitted for acute hypoxic respiratory failure due to influenza. Intubated and sedated. Improved oxygenation on decreased PEEP. Physical Exam Vital Signs Date Time Temp Pulse Resp B/P (MAP) Pulse Ox O2 Delivery O2 Flow Rate FiO2 04/18/18 10:00 98 04/18/18 09:49 90 Mechanical Ventilator 75.0 04/18/18 09:49 30 04/18/18 09:30 128/64 (85) 04/18/18 08:00 99.8 04/16/18 01:00 40.0 Intake and Output 04/18/18 06:59 Intake Total 3331 ml Output Total 1245 ml Balance 2086 ml IV Total 3331 ml Output Urine Total 1095 ml Gastric Drainage Total 150 ml General Appearance: Afebrile Neuro: No Gross deficits ENT: Normal Cardiovascular: Normal Rhythm & Peripheral Pulses Respiratory: Other (intubated, ventilated) GI: Soft and Non-Tender : Normal (+ Cruz) Extremities: Soft and Non Tender, Warm, Pulses, Perfused Result Diagram: 04/18/1852104/18/18521 Assessment and Plan Problems: (1) Influenza A Status: Acute Assessment & Plan: She did test positive for influenza A. She has been started on Tamiflu. (2) ARDS (adult respiratory distress syndrome) Status: Acute Assessment & Plan: She does have bilateral patchy infiltrates and difficulties oxygenating after intubation. She is currently paralyzed and on AC. We are adjusting her ventilator settings, and will try to wean off the rocuronium today. (3) Bacterial pneumonia Assessment & Plan: Bilateral infiltrates are noted on her chest x-ray. She was started on empiric antibiotics given the severity of her illness. Cultures are pending. (4) Sepsis Status: Acute Assessment & Plan: She did have a fever and elevated lactate level. She is on IV fluids and stress dose hydrocortisone. (5) Acute renal failure Status: Acute Assessment & Plan: She did have a bump in her creatinine overnight. We have increased her IV fluids. (6) Seizure disorder Status: Chronic Assessment & Plan: She is on chronic treatment with topiramate, which is being given through the feeding tube. (7) Hypokalemia Assessment & Plan: Resolved. (8) Hypocalcemia Assessment & Plan: She is scheduled to receiving calcium today. Exam Sepsis Risk: Severe Sepsis Risk Problem Qualifiers (1) Sepsis: Sepsis type: sepsis due to unspecified organism Qualified Codes: A41.9 - Seps is, unspecified organism CHERELLE PORTER DO Apr 18, 2018 11:21
[2018-04-18] MEDS: PROPOFOL(*)1000 MG/100 ML VIAL 100 ML IV PRN (13:31)
--- NOTE | 2018-04-18 13:53 | Antimicrobial Stewardship ---
Antimicrobial Time Out Antimicrobial Stewardship MD Service: Hospitalist Indications: CAP Antimicrobial Used AZITHROMYCIN, CEFTRIAXONE, TAMIFLU Start Date: Apr 15, 2018 Culture Results: No (PENDING) Eligible for PO Conversion Eligable for PO Conversion: No Reviewed with Provider Reviewed w/ Provider on Rounds: No Comments Comments PATIENT IS ON MECHANICAL VENTILATOR, POSITIVE RESULT FOR INFLUENZA AND IMAGINING SHOWS POSSIBLE BACTERIAL PNEUMONIA CULTURE PENDING CHANG NEWMAN Apr 18, 2018 13:53
[2018-04-18] MEDS: cefTRIAXone 1 GM VIAL IVP SCH (17:18)
[2018-04-18] MEDS: AZITHROMYCIN(*) 500 MG 500 MG in NS(*) 0.9% 250 ML BAG 250 ML IVPB SCH (17:31)
[2018-04-18] MEDS: OSELTAMIVIR PHOS 30 MG CAP FT SCH (21:31)
[2018-04-18] MEDS: ACETAMINOPHEN(*)1000 MG/100 ML 100 ML IVPB PRN (21:32)
[2018-04-19] VITALS (84 sets, daily range): BP systolic 82–140; BP diastolic 42–92
[2018-04-19] MEDS: HYDROCORTISONE 100 MG/2 ML IVP SCH ×3 (01:18→22:07)
[2018-04-19] MEDS: ALBUTEROL/IPRATROPIUM 3 ML NEB NEB SCH ×4 (04:51→17:00)
[2018-04-19 05:19] LABS: PLATELET COUNT, AUTOMATED 105 K/uL (150-450)
[2018-04-19] MEDS: INSULIN HUM LISPRO 100 UN/ML 3 ML VIAL SUBQ PRN ×4 (06:13→17:48)
--- NOTE | 2018-04-19 06:19 | RADIOLOGY IMAGING REPORT ---
FACILITY: [facility] PATIENT NAME: Mounika Chavez : 1965 MR: [id number] V: [id number] EXAM DATE: ORDERING PHYSICIAN: CHERELLE CROWELL TECHNOLOGIST: Location: [facility] Patient: Mounika Chavez : 1965 Visit/Account:[id number] Date of Sevice: 04/19/2018 Study: CHEST SINGLE AP Indication: Intubated Comparison study: 04/18/2018 Findings: Portable chest demonstrates the presence of an endotracheal tube with tip 4 cm above the le blair of the jese. There is a central venous catheter with tip overlying the cavoatrial junction. The re is a nasogastric tube present with the tip descending below the level of film. There are bilateral pleural effusions present. There are diffuse bilateral infiltrates present. These appear to be unchanged, given change in film technique. There is no evidence of pneumothorax. IMPRESSION: No change as compared to the previous study. Report Dictated By: Landry Major at 04/19/2018 6:13 AM Report E-Signed By: Landry Major at 04/19/2018 6:14 AM [id number]
--- NOTE | 2018-04-19 08:59 | Hospitalist Progress Note ---
Subjective Progress Notes Subjective Sedated on ventilator. Low grade fever. Physical Exam Vital Signs Date Time Temp Pulse Resp B/P (MAP) Pulse Ox O2 Delivery O2 Flow Rate FiO2 04/19/18 08:00 70.0 04/19/18 07:45 90 04/19/18 07:30 99.8 29 135/65 (88) 90 Mechanical Ventilator 04/16/18 01:00 40.0 Intake and Output 04/19/18 07:00 Intake Total 4580 ml Output Total 920 ml Balance 3660 ml IV Total 3539 ml Tube Feeding 851 ml Tube Irrigant 190 ml Output Urine Total 920 ml General Appearance: Other (sedated on ventilator) ENT: Other (ET/OG tubes in place) Neck: No Masses Cardiovascular: Other (Regular no murmur noted) Respiratory: Other (fairly clear with few rhonchi/coarse ventilator sounds) Chest: Other (Right subclavian site looks good) GI: Other (Soft/BS minimal) Extremities: Warm, Perfused, Edema (trace dependent) Integumentary: Skin Intact without Lesion / Mass Result Diagram: 04/19/1845004/19/18 0451 Item Value Date Time Blood Gas Puncture Site Line 04/19/18 0452 Blood Gas Patient Temperature 99.8 DEGREES 04/19/18 0452 Arterial Blood pH 7.39 04/19/18 0452 Arterial Blood Partial Pressure CO2 37 mmHg 04/19/18 0452 Arterial Blood Partial Pressure O2 60 mmHg 04/19/18 0452 Arterial Blood HCO3 22 mmol/L 04/19/18 0452 Arterial Blood Oxygen Saturation 90 % L 04/19/18 0452 Arterial Blood Base Excess -3.0 mmol/L 04/19/18 0452 Miguel Angel Test Nt avail 04/19/18 0452 Oxygen Liters/Minute 70 04/19/18 0452 Albumin 2.1 g/dl L 04/19/18 0451 Total Protein 4.7 g/dl L 04/19/18 0451 Alkaline Phosphatase 268 U/L H 04/19/18 0451 Alanine Aminotransferase (ALT/SGPT) 48 U/L 04/19/18 0451 Aspartate Amino Transf (AST/SGOT) 110 U/L H 04/19/18 0451 Total Bilirubin 0.3 mg/dl 04/19/18 0451 Calcium Level 6.4 mg/dl *L 04/19/18 0451 Imaging PATIENT NAME: Mounika Chavez : 1965 MR: [id number] V: [id number] EXAM DATE: ORDERING PHYSICIAN: CHERELLE CROWELL TECHNOLOGIST: Location: [facility] Patient: Mounika Chavez : 1965 Visit/Account:[id number] Date of Sevice: 04/19/2018 Study: CHEST SINGLE AP Indication: Intubated Comparison study: 04/18/2018 Findings: Portable chest demonstrates the presence of an endotracheal tube with tip 4 cm above the level of the jese. There is a central venous catheter with tip overlying the cavoatrial junction. There is a nasogastric tube present with the tip descending below the level of film. There are bilateral pleural effusions present. There are diffuse bilateral infiltrates present. These appear to be unchanged, given change in film technique. There is no evidence of pneumothorax. IMPRESSION: No change as compared to the previous study. Report Dictated By: Landry Major at 04/19/2018 6:13 AM Report E-Signed By: Landry Major at 04/19/2018 6:14 AM [id number] Assessment and Plan Problems: (1) Influenza A Status: Acute Assessment & Plan: She did test positive for influenza A. She has been started on Tamiflu at renal dosing. Her temperature has improved, but still some low grade elevation. She may be an influenza pneumonia as well. Clinically, she has made some improvements. (2) ARDS (adult respiratory distress syndrome) Status: Acute Assessment & Plan: She does have persistent bilateral patchy infiltrates and had significant difficulties oxygenating after intubation. We have been adjusting her ventilator settings and have been able to wean her FiO2 and PEEP down slowly. She is on the Tamiflu and IV Rocephin/azithromycin/steroids. (3) Bacterial pneumonia Assessment & Plan: Bilateral infiltrates are noted on her chest x-ray. She was started on empiric IV antibiotics given the severity of her illness. Cultures are negative thus far. Suspect this is most likely influenza pneumonia with associated ARDS. (4) Sepsis Status: Acute Assessment & Plan: She did have a fever (improved) and elevated lactate level (resolved). She is on IV fluids and stress dose hydrocortisone. (5) Acute renal failure Status: Acute Assessment & Plan: She did have a increase in her creatinine. We have increased her IV fluids. I suspect she is third spacing a fair amount of fluid. Her CVP is 6. Will try some albumin to increase intravascular volume. Watch BPs, CVPs, UOP, and labs closely. (6) Seizure disorder Status: Chronic Assessment & Plan: She is on chronic treatment with topiramate, which is being given through the feeding tube. (7) Hypokalemia Assessment & Plan: Resolved. (8) Hypocalcemia Assessment & Plan: She is receiving calcium intermittently. Central Venous Access Medical Necessity for Access: Hemodynamic Monitoring, IV Access, Medication Administration Exam Sepsis Risk: Severe Sepsis Risk Problem Qualifiers (1) Sepsis: Sepsis type: sepsis due to unspecified organism Qualified Codes: A41.9 - Sepsis, unspecified organism DESIREE HAYDEN MD Apr 19, 2018 08:59
[2018-04-19] MEDS: PANTOPRAZOLE SOD 40 MG IV VIAL IVP SCH (09:07)
[2018-04-19] MEDS: OSELTAMIVIR PHOS 30 MG CAP FT SCH ×2 (09:07→22:08)
[2018-04-19] MEDS: TOPIRAMATE 25 MG TAB FT SCH (09:07)
[2018-04-19] MEDS: ALBUMIN HUMAN 5% 250 ML BTL 250 ML IVPB SCH ×2 (09:08→22:08)
[2018-04-19] MEDS: NYSTATIN 100,000 U/GM PWD 15GM TP SCH ×2 (09:08→22:08)
[2018-04-19] MEDS: ORAL SUCTION/CHLORHX/SWAB KIT MT SCH ×2 (09:08→20:18)
[2018-04-19] MEDS: ENOXAPARIN 40 MG/0.4ML SYR SC SCH (09:08)
[2018-04-19] MEDS: PROPOFOL(*)1000 MG/100 ML VIAL 100 ML IV PRN ×2 (11:28→21:50)
--- NOTE | 2018-04-19 12:43 | Medical Nutrition Therapy ---
Nutrition Anthropometrics Height (Inches): 62.00 Height (Calculated Centimeters: 157.063648 Weight (Pounds): 230 Weight (Calculated Kilograms): 104.525 BMI: 38.8 Juan A Nutrition Score: Adequate Juan A Nutrition Risk Score: 13 Dietary Referral Nutrition Risk Factors: Nutrition Risk Comment: Physical Findings Physical Appearance: Obese BMI 30-39 Skin Appearance Skin Appearance: Edema Edema Location Modifier: Both Edema Location: Generalized Type of Edema: Degree of Edema: Gastrointestinal Symptoms GI Symtoms: Tube Present: OG Bowel Sounds: Recent Bowel Pattern: Stool Characteristics: Nutritional Diagnosis Nutritional Risk Acuity 1: Acute/ES Renal, Pulm Fail Vent Nutritional Risk Acuity 2: Pr Appetite > 3d Nutritional Acuity: 1-High Nutrition Diagnosis: Increased Nutrient Needs Nutrition Etiology: Physiological Causes Nutrition Problem/Etiology/Sym: AEB on mech vent Energy Requirement: 1985 ([place]) Protein Requirement: 76 (.8gm/kg) Fluid Requirement: 2400 (25ml/kg) Diet Type: NPO (Nothing by Mouth), Tube Feeding (TF) Nutrition Intervention: Nutrition support, Incr diet as tolerated Nutritional Support Current Enteral / Parental: Tube Feeding Tube Feeding Formulas: Glucerna 1cal/ml-Diabetic Tube Feeding Supplement Streng: Full Feeding Route: FT Placed Oralgastric Rate: initiate at 30ml/hr increase 10ml q 4 hrs to final rate 75ml/hr Current Duration: 24 Current Calories: 1800 (based on final rate) Current Protein: 75 (based on final rate) Current Lipids Calories: 238 (propofol) Total Current Calories: 2038 Nutrition Monitoring & Eval Nutritional Goals Comment: Enteral nutrtion will meet nutr needs until oral intake can meet needs. RD Patient Assessment Time: [address] Assessment Type: Nutrition Support Consult Patient Nutrition Acuity: 1-High Follow Up Date: Apr 21, 2018 Nutritional Comment: Pt admitted for pneumonia with influenza A and ARF. Pt currently NPO and on mech vent. Nutr significant labs: alb 2.3, BUN 31, creatinine 1.3, BG 158-210. Pt reported 3 day poor appetite prior to admit. BMI is in class 2 obesity range. Pt does not have dx of diabetes but random BG > 200 is diagnosis for diabetes. Will cont to monitor. BK 04/18 Enteral nutrition initiated. Final rate of 80ml/hr Glucerna will meet 97% est kcal and 105% est protein needs. BMI is in class 3 obesity range. Goal is to provide adequate kcal but not excessive. will cont to monitor. JOSUÉ 04/19 Enteral nutrition declinied to 75ml/hr because pt is recieving additional kcal from propofol to avoid overfeeding. Glucernal + propofol is meeting 103% est kcal and 100% est protein needs. Will cont to monitor.CARA CUNNINGHAM Apr 19, 2018 12:43
[2018-04-19] MEDS: ACETAMINOPHEN(*)1000 MG/100 ML 100 ML IVPB PRN (13:11)
[2018-04-19] MEDS ORDERED: CALCIUM GLUC(*)10% 100MG/ML VL 1,000 MG in NS(*) 0.9% 100 ML BAG 100 ML IVPB ONE (16:15)
[2018-04-19] MEDS: cefTRIAXone 1 GM VIAL IVP SCH (17:09)
[2018-04-19] MEDS: AZITHROMYCIN(*) 500 MG 500 MG in NS(*) 0.9% 250 ML BAG 250 ML IVPB SCH (17:19)
[2018-04-19] MEDS: NS(*) 0.9% 1000 ML BAG 1,000 ML IV PRN (21:50)
[2018-04-20] VITALS (94 sets, daily range): BP systolic 100–295; BP diastolic 57–215
[2018-04-20] MEDS: NS(*) 0.9% 1000 ML BAG 1,000 ML IV PRN (00:04)
[2018-04-20] MEDS: INSULIN HUM LISPRO 100 UN/ML 3 ML VIAL SUBQ PRN ×2 (00:15→05:50)
[2018-04-20] MEDS: PROPOFOL(*)1000 MG/100 ML VIAL 100 ML IV PRN ×5 (04:49→22:38)
[2018-04-20 05:02] LABS: PLATELET COUNT, AUTOMATED 99 K/uL (150-450)
[2018-04-20] MEDS: ALBUTEROL/IPRATROPIUM 3 ML NEB NEB SCH ×4 (05:03→17:42)
--- NOTE | 2018-04-20 05:41 | NUR ---
glucose on am labdraw 176, covered per jah scale Addendum: 04/20/18 at 0541 by MATTHEW COVARRUBIAS RN Amended: Links added.
--- NOTE | 2018-04-20 06:17 | RADIOLOGY IMAGING REPORT ---
FACILITY: [facility] - [place], [place] PATIENT NAME: Mounika Chavez : 1965 MR: [id number] V: [id number] EXAM DATE: ORDERING PHYSICIAN: DESIREE HAYDEN TECHNOLOGIST: Location: [facility] Patient: Mounika Chavez : 1965 Visit/Account:[id number] Date of Sevice: 04/20/2018 Study: CHEST SINGLE AP Indication: Pneumonia, intubated Comparison study: April 19, 2018 Findings: AP portable chest demonstrates presence of an endotracheal tube with the tip 4 cm above the level of the jese. There is a PICC line with the tip overlying the cavoatrial junction. There is a nasogastric tube with the tip descending below the level of the film. There are bilateral pleural effusions and basilar infiltrates present. There is no evidence of pneumo thorax. IMPRESSION: There is no significant change as compared to the previous study. Report Dictated By: Landry Major at 04/20/2018 6:12 AM Report E-Signed By: Landry Major at 04/20/2018 6:14 AM WSN:[id number]
[2018-04-20] MEDS: PANTOPRAZOLE SOD 40 MG IV VIAL IVP SCH (08:36)
[2018-04-20] MEDS: ENOXAPARIN 40 MG/0.4ML SYR SC SCH (08:36)
[2018-04-20] MEDS: ALBUMIN HUMAN 5% 250 ML BTL 250 ML IVPB SCH ×2 (08:36→20:36)
[2018-04-20] MEDS: ORAL SUCTION/CHLORHX/SWAB KIT MT SCH ×2 (08:36→20:37)
[2018-04-20] MEDS: OSELTAMIVIR PHOS 30 MG CAP FT SCH ×2 (08:37→20:36)
[2018-04-20] MEDS: TOPIRAMATE 25 MG TAB FT SCH (08:37)
[2018-04-20] MEDS: NYSTATIN 100,000 U/GM PWD 15GM TP SCH ×2 (08:37→20:37)
[2018-04-20] MEDS: NS 0.45%(*) 1000 ML BAG 1,000 ML IV PRN (08:48)
--- NOTE | 2018-04-20 10:27 | Hospitalist Progress Note ---
Subjective Progress Notes Subjective This patient was admitted for respiratory failure secondary to influenza. She had no acute events overnight. Patient Complains of: Cardiovascular: No: Chest Pain Respiratory: No: Shortness of Breath Physical Exam Vital Signs Date Time Temp Pulse Resp B/P (MAP) Pulse Ox O2 Delivery O2 Flow Rate FiO2 04/20/18 09:48 80 04/20/18 09:45 25 119/82 (94) 91 Mechanical Ventilator 60.0 04/20/18 09:30 99.5 Intake and Output 04/20/18 07:00 Intake Total 4735.9 ml Output Total 1190 ml Balance 3545.9 ml IV Total 3381.9 ml Tube Feeding 1179 ml Tube Irrigant 175 ml Output Urine Total 1190 ml # Bowel Movements 1 Neuro: Other (Sedated.) Eyes: PERRLA Cardiovascular: Regular Rate and Rhythm Respiratory: Clear to Auscultation GI: Soft and Non-Tender Extremities: Edema Integumentary: No Cyanosis Result Diagram: 04/20/18 0453 04/20/18 0453 Item Value Date Time Arterial Blood pH 7.48 H 04/20/18 0502 Arterial Blood Partial Pressure CO2 28 mmHg L 04/20/18 0502 Arterial Blood Partial Pressure O2 68 mmHg 04/20/18 0502 Arterial Blood HCO3 21 mmol/L 04/20/18 0502 Item Value Date Time Blood Culture - Preliminary Resulted 04/15/18 1804 Blood Peripheral Draw NO GROWTH AFTER 4 DAYS, REINCUBATED Blood Culture - Preliminary Resulted 04/15/18 1656 Blood Peripheral Draw NO GROWTH AFTER 4 DAYS, REINCUBATED Imaging Chest x-ray reviewed. Assessment and Plan Problems: (1) Influenza A Status: Acute Assessment & Plan: She did test positive for influenza A. She has been on Tamiflu at renal dosing. (2) ARDS (adult respiratory distress syndrome) Status: Acute Assessment & Plan: She does have persistent bilateral patchy infiltrates and had significant difficulties oxygenating after intubation. We have been adjus ting her ventilator settings and have been able to wean her FiO2 and PEEP down slowly. (3) Bacterial pneumonia Assessment & Plan: Bilateral infiltrates are noted on her chest x-ray. She has been on ceftriaxone and azithromycin, but continues to have low grade fevers. We have switched her to Zosyn today. (4) Sepsis Status: Acute Assessment & Plan: She did present with fever and elevated lactate level. She also required an infusion of norepinephrine for a while. She is now off vasop ressors and IV steroids have been discontinued. (5) Acute renal failure Status: Acute Assessment & Plan: She did have a increase in her creatinine. She was started on an albumin infusion. Her antibiotics are renal dosed. (6) Seizure disorder Status: Chronic Assessment & Plan: She is on chronic treatment with topiramate, which is being given through the feeding tube. (7) Hypokalemia Assessment & Plan: Resolved. (8) Hypocalcemia Assessment & Plan: She is receiving calcium intermittently. Central Venous Access Medical Necessity for Access: Hemodynamic Monitoring, IV Access, Medication Administration Exam Sepsis Risk: Severe Sepsis Risk Problem Qualifiers (1) Sepsis: Sepsis type: sepsis due to unspecified organism Qualified Codes: A41.9 - Sepsis, unspecified organism NALINI YOUNG DO Apr 20, 2018 10:27
--- NOTE | 2018-04-20 11:30 | Antimicrobial Stewardship ---
Antimicrobial Stewardship Empiricly appropriate: Yes (Antibiotic switch to Zosyn secondary to continued fevers) Support empiric regimen: Yes (Completed 5 days of Ceftriaxone + azithromyin --> CAP) Renal/Hepatic dosing: Yes (CrCl ~32-46ml/min depending on IBW or adj BW) Clinically stable/improving: No (Pt still febrile and without significant improvement, will re-escalate antibiotics) IV to PO Opportunity: No Determine cumulative duration: HAP/VAP PNA--today is day 1 Determine standard duration: 7 days, depending on response Comment 53 yo F with a CAP secondary to influenza A, started on Ceftriaxone/Azithromycin and has completed a full course. She was also started on Tamiflu and has completed a full course, but based on her lack of improvement, will continue Tamiflu as she is still with fever. Will broaden antibiotics and treat like a HAP/VAP. Will double cover for Pseudomonas with Zosyn + Levofloxacin. Will monitor and follow. 04/15/18--Tamiflu started 04/15/18-04/19/18-- Ceftriaxone + Azithromycin (completed 5 days = full course) 04/20/18- Start Zosyn + Levofloxacin renal dosing for potential HAP/VAP/lack of improvement Svitlana Adair, PharmD, BCOP SVITLANA ADAIR Apr 20, 2018 11:30
[2018-04-20] MEDS: PIPERACILLIN/TAZO*3.375GM VIAL 3.375 GM in NS(*) 0.9% 100 ML ADDVANT BAG 100 ML IVPB SCH ×3 (11:43→23:31)
[2018-04-20] MEDS ORDERED: LEVOFLOXACIN/D5W 750 MG/150 ML 150 ML IVPB SCH (13:00)
[2018-04-20] MEDS: ASCORBIC ACID 500 MG TAB FT SCH ×2 (13:15→20:36)
[2018-04-20] MEDS ORDERED: FUROSEMIDE 20 MG/2 ML VIAL IVP ONE ×2 (14:25→21:30)
[2018-04-20] MEDS: HYDROmorphone HCL 2 MG/ML SDV IVP PRN (19:27)
[2018-04-21] VITALS (80 sets, daily range): BP systolic 88–154; BP diastolic 46–90
[2018-04-21] MEDS: HYDROmorphone HCL 2 MG/ML SDV IVP PRN (00:26)
[2018-04-21] MEDS: PROPOFOL(*)1000 MG/100 ML VIAL 100 ML IV PRN ×6 (02:31→21:49)
[2018-04-21] MEDS: ACETAMINOPHEN(*)1000 MG/100 ML 100 ML IVPB PRN ×3 (03:22→21:09)
[2018-04-21] MEDS: ALBUTEROL/IPRATROPIUM 3 ML NEB NEB SCH ×4 (04:33→17:00)
--- NOTE | 2018-04-21 05:40 | RADIOLOGY IMAGING REPORT ---
FACILITY: [facility] - [place] PATIENT NAME: Mounika Chavez : 1965 MR: [id number] V: [id number] EXAM DATE: ORDERING PHYSICIAN: NALINI YOUNG TECHNOLOGIST: Location: [facility] Patient: Mounika Chavez : 1965 Visit/Account:[id number] Date of Sevice: 04/21/2018 AP CHEST 04/21/2018 6:00 AM. INDICATION: pneumonia, intubated COMPARISON: Yesterday. FINDINGS: Support line and tubes are unchanged. Suspected bilateral pleural effusions, not significant change. Bilateral mixed opacification appears increased at the right the upper lung. No pneumothorax. Heart size is unchanged. IMPRESSION: Persistent bilateral mixed opacification, likely increased at the right upper lung. Pers istent bilateral pleural effusions. Report Dictated By: Kayode Walter MD at 04/21/2018 5:31 AM Report E-Signed By: Kayode Walter MD at 04/21/2018 5:32 AM WSN:[id number]
[2018-04-21 05:45] LABS: PLATELET COUNT, AUTOMATED 98 K/uL (150-450)
[2018-04-21] MEDS: PIPERACILLIN/TAZO*3.375GM VIAL 3.375 GM in NS(*) 0.9% 100 ML ADDVANT BAG 100 ML IVPB SCH ×3 (06:03→17:49)
[2018-04-21] MEDS: INSULIN HUM LISPRO 100 UN/ML 3 ML VIAL SUBQ PRN ×2 (06:10→12:05)
[2018-04-21] MEDS: fentaNYL CITR 250 MCG/5 ML AMP 1,500 MCG in NS 0.9% 150 ML BAG 120 ML IV PRN (08:43)
[2018-04-21] MEDS: ALBUMIN HUMAN 5% 250 ML BTL 250 ML IVPB SCH ×2 (09:20→21:09)
[2018-04-21] MEDS: NS 0.45%(*) 1000 ML BAG 1,000 ML IV PRN ×3 (09:25→21:25)
[2018-04-21] MEDS: PANTOPRAZOLE SOD 40 MG IV VIAL IVP SCH (09:27)
[2018-04-21] MEDS: NYSTATIN 100,000 U/GM PWD 15GM TP SCH ×2 (09:29→21:09)
[2018-04-21] MEDS: ASCORBIC ACID 500 MG TAB FT SCH ×3 (09:29→21:09)
[2018-04-21] MEDS: ORAL SUCTION/CHLORHX/SWAB KIT MT SCH ×2 (09:29→21:09)
[2018-04-21] MEDS: TOPIRAMATE 25 MG TAB FT SCH (09:29)
[2018-04-21] MEDS: OSELTAMIVIR PHOS 30 MG CAP FT SCH ×2 (09:29→21:09)
[2018-04-21] MEDS: KCL (*) 20 MEQ/100 ML PREMIX 100 ML IV SCH ×2 (09:30→11:03)
[2018-04-21] MEDS: ENOXAPARIN 40 MG/0.4ML SYR SC SCH (09:31)
[2018-04-21] MEDS ORDERED: FUROSEMIDE 20 MG/2 ML VIAL IVP SCH ×2 (10:30→22:30)
--- NOTE | 2018-04-21 10:46 | Medical Nutrition Therapy ---
Nutrition Anthropometrics Height (Inches): 62.00 Height (Calculated Centimeters: 157.734803 Weight (Pounds): 237 Weight (Calculated Kilograms): 107.501 BMI: 38.8 Juan A Nutrition Score: Adequate Juan A Nutrition Risk Score: 13 Dietary Referral Nutrition Risk Factors: Nutrition Risk Comment: Physical Findings Physical Appearance: Obese BMI 30-39 Skin Appearance Skin Appearance: Edema Edema Location Modifier: Both Edema Location: Generalized Type of Edema: Degree of Edema: Gastrointestinal Symptoms GI Symtoms: Tube Present: OG Bowel Sounds: Recent Bowel Pattern: Stool Characteristics: Nutritional Diagnosis Nutritional Risk Acuity 1: Acute/ES Renal, Pulm Fail Vent Nutritional Risk Acuity 2: Pr Appetite > 3d Nutritional Acuity: 1-High Nutrition Diagnosis: Increased Nutrient Needs Nutrition Etiology: Physiological Causes Nutrition Problem/Etiology/Sym: AEB on mech vent Energy Requirement: 1985 ([place]) Protein Requirement: 76 (.8gm/kg) Fluid Requirement: 2400 (25ml/kg) Diet Type: NPO (Nothing by Mouth), Tube Feeding (TF) Nutrition Intervention: Nutrition support, Incr diet as tolerated Nutritional Support Current Enteral / Parental: Tube Feeding Tube Feeding Formulas: Glucerna 1cal/ml-Diabetic Tube Feeding Supplement Streng: Full Feeding Route: FT Placed Oralgastric Rate: initiate at 30ml/hr increase 10ml q 4 hrs to final rate 75ml/hr Current Duration: 24 Current Calories: 1800 (based on final rate) Current Protein: 75 (based on final rate) Current Lipids Calories: 238 (propofol) Total Current Calories: 2038 Nutrition Monitoring & Eval RD Patient Assessment Time: [address] Assessment Type: Nutrition Support Consult Patient Nutrition Acuity: 1-High Follow Up Date: Apr 24, 2018 Nutritional Comment: Pt admitted for pneumonia with influenza A and ARF. Pt currently NPO and on mech vent. Nutr significant labs: alb 2.3, BUN 31, creatinine 1.3, BG 158-210. Pt reported 3 day poor appetite prior to admit. BMI is in class 2 obesity range. Pt does not have dx of diabetes but random BG > 200 is diagnosis for diabetes. Will cont to monitor. BK 04/18 Enteral nutrition initiated. Final rate of 80ml/hr Glucerna will meet 97% est kcal and 105% est protein needs. BMI is in class 3 obesity range. Goal is to provide adequate kcal but not excessive. will cont to monitor. BK 04/19 Enteral nutrition declinied to 75ml/hr because pt is recieving additional kcal from propofol to avoid overfeeding. Glucernal + propofol is meeting 103% est kcal and 100% est protein needs. Will cont to monitor.BK 04/21 Pt cont on enteral nutrition. Glucerna was up to 75ml/hr however pt had 165ml residual and it was pulled back to 60ml/hr with no residuals reported. Pt is on 27mls/hr propofol provideing 713 kcal. TF at 60 ml/hr + propofol meets 110% est kcal but only 79% est protein needs. If pt continues on high propofol rate, pt may benefit from higher protein enteral formula. Wt up 22kg since admit. alb declined to 2.4, BUN 44, Creatinine 1.7. Will cont to monitor. CARA CUNNINGHAM Apr 21, 2018 10:46
--- NOTE | 2018-04-21 14:00 | Hospitalist Progress Note ---
Subjective Progress Notes Subjective 53F admitted with acute hypoxic respiratory failure 2/ influenza and ARDS. Remains intubated and sedated. Physical Exam Vital Signs Date Time Temp Pulse Resp B/P (MAP) Pulse Ox O2 Delivery O2 Flow Rate FiO2 04/21/18 13:02 85.0 04/21/18 11:05 86 Mechanical Ventilator 04/21/18 10:00 92 04/21/18 04:33 29 04/21/18 04:23 100.0 04/21/18 04:15 128/59 (82) Intake and Output 04/21/18 07:00 Intake Total 4587.0 ml Output Total 2660 ml Balance 1927.0 ml IV Total 3337.0 ml Tube Feeding 1135 ml Tube Irrigant 115 ml Output Urine Total 2660 ml General Appearance: Afebrile Neuro: No Gross deficits Cardiovascular: Normal Rhythm & Peripheral Pulses Respiratory: Clear to Auscultation GI: Soft and Non-Tender Extremities: Soft and Non Tender, Warm, Pulses, Perfused Result Diagram: 04/21/18 0500 04/21/18 0500 Assessment and Plan Problems: (1) Influenza A Status: Acute Assessment & Plan: She did test positive for influenza A. She has been on Tamiflu at renal dosing. (2) ARDS (adult respiratory distress syndrome) Status: Acute Assessment & Plan: She does have persistent bilateral patchy infiltrates and h ad significant difficulties oxygenating after intubation. We have been adjusting her ventilator settings and have been able to wean her FiO2 and PEEP down. Remains relatively difficult to oxygenate, plateau pressure acceptable, significantly overbreathing the vent. Increased sedation (3) Bacterial pneumonia Assessment & Plan: Bilateral infiltrates are noted on her chest x-ray. She has been on ceftriaxone and azithromycin, but continues to have low grade fevers. We have switched her to Zosyn. (4) Sepsis Status: Acute Assessment & Plan: She did present with fever and elevated lactate level. She also required an infusion of norepinephrine for a while. She is now off vasopressors and IV steroids have been discontinued. (5) Acute renal failure Status: Acute Assessment & Plan: She did have a increase in her creatinine. She was started on an albumin infusion. Her antibiotics are renal dosed. (6) Seizure disorder Status: Chronic Assessment & Plan: She is on chronic treatment with topiramate, which is being given through the feeding tube. (7) Hypokalemia Assessment & Plan: Resolved. (8) Hypocalcemia Assessment & Plan: She is receiving calcium intermittently. Central Venous Access Medical Necessity for Access: Hemodynamic Monitoring, IV Access, Medication Administration Exam Sepsis Risk: Severe Sepsis Risk Problem Qualifiers (1) Sepsis: Sepsis type: sepsis due to unspecified organism Qualified Codes: A41.9 - Sepsis, unspecified organism CHERELLE PORTER DO Apr 21, 2018 14:00
[2018-04-21] MEDS: ROCURONIUM BR(*)10 MG/ML 10 ML 500 MG in NS(*) 0.9% 500 ML BAG 450 ML IVPB PRN (19:07)
[2018-04-22] VITALS (41 sets, daily range): BP systolic 82–158; BP diastolic 59–95
[2018-04-22] MEDS: PIPERACILLIN/TAZO*3.375GM VIAL 3.375 GM in NS(*) 0.9% 100 ML ADDVANT BAG 100 ML IVPB SCH ×2 (00:30→05:17)
[2018-04-22] MEDS: INSULIN HUM LISPRO 100 UN/ML 3 ML VIAL SUBQ PRN (00:30)
[2018-04-22] MEDS ORDERED: NS(*) 0.9% 1000 ML BAG 1,000 ML ONE (00:38)
[2018-04-22] MEDS: ACETAMINOPHEN(*)1000 MG/100 ML 100 ML IVPB PRN (03:57)
[2018-04-22] MEDS: ALBUTEROL/IPRATROPIUM 3 ML NEB NEB SCH ×2 (04:58→09:34)
[2018-04-22] MEDS: PROPOFOL(*)1000 MG/100 ML VIAL 100 ML IV PRN ×2 (05:08→10:52)
[2018-04-22 05:28] LABS: PLATELET COUNT, AUTOMATED 125 K/uL (150-450)
--- NOTE | 2018-04-22 05:29 | NUR ---
BS on am labdraw 128, no slighting scale coverage needed Addendum: 04/22/18 at 9532 by MATTHEW COVARRUBIAS RN Amended: Links added.
--- NOTE | 2018-04-22 06:32 | RADIOLOGY IMAGING REPORT ---
FACILITY: [facility] - [place] PATIENT NAME: Mounika Chavez : 1965 MR: [id number] V: [id number] EXAM DATE: ORDERING PHYSICIAN: CHERELLE CROWELL TECHNOLOGIST: Location: [facility] - [place] Patient: Mounika Chavez : 1965 Visit/Account:[id number] Date of Sevice: 04/22/2018 CHEST SINGLE AP Indication: Intubated. Comparison: To 04/09/2018 Findings: Stable lines/tubes. Heart size within normal limits. Bilateral pulmonary opacities which are grossly unchanged. No pneumothorax or pleural effusion. IMPRESSION: No significant change since prior exam. Report Dictated By: Kendall Najera MD at 04/22/2018 6:27 AM Report E-Signed By: Kendall Najera MD at 04/22/2018 6:28 AM WSN:[id number]
[2018-04-22] MEDS ORDERED: IMIPENEM/CILASTA(*) 500MG VIAL 300 MG in NS(*) 0.9% 100 ML BAG 100 ML IVPB SCH (08:00)
[2018-04-22] MEDS: ENOXAPARIN 40 MG/0.4ML SYR SC SCH (08:29)
[2018-04-22] MEDS: ASCORBIC ACID 500 MG TAB FT SCH (08:29)
[2018-04-22] MEDS: OSELTAMIVIR PHOS 30 MG CAP FT SCH (08:29)
[2018-04-22] MEDS: PANTOPRAZOLE SOD 40 MG IV VIAL IVP SCH (08:30)
[2018-04-22] MEDS: TOPIRAMATE 25 MG TAB FT SCH (08:30)
[2018-04-22] MEDS ORDERED: VANCOMYCIN(*) 1 GM VIAL 2.5 GM in NS(*) 0.9% 500 ML BAG 500 ML IVPB ONE (09:00)
[2018-04-22] MEDS ORDERED: HYDROCORTISONE 100 MG/2 ML IVP SCH (09:00)
[2018-04-22] MEDS: NYSTATIN 100,000 U/GM PWD 15GM TP SCH (09:14)
[2018-04-22] MEDS: ORAL SUCTION/CHLORHX/SWAB KIT MT SCH (09:14)
[2018-04-22] MEDS: fentaNYL CITR 250 MCG/5 ML AMP 1,500 MCG in NS 0.9% 150 ML BAG 120 ML IV PRN (09:17)
[2018-04-22] MEDS ORDERED: ARTIFICIAL TEARS OINT 3.5 GM OU SCH (09:20)
[2018-04-22] MEDS: ROCURONIUM BR(*)10 MG/ML 10 ML 500 MG in NS(*) 0.9% 500 ML BAG 450 ML IVPB PRN (09:26)
--- NOTE | 2018-04-22 10:34 | Hospitalist Depart ---
Discharge Summary Reason for Hosp/Final Diag: (1) ARDS (adult respiratory distress syndrome) Status: Acute Hospital Course & Plan: She was initially admitted with influenza A with associated pneumonia. She was placed on Tamiflu and IV antibiotics with Rocephin, Zithromax, and vancomycin. She was also given stress dose Solu-Cortef. Over the first 8-12 hours her status decompensated and she required intubation and mechanical ventilation. She was requiring FiO2 of 100% with high PEEP as well as sedation and rocuronium paralysis to keep her concordant with the ventilator. She initially had some mild hypotension and required Levophed in addition to IV fluid resuscitation. We were able to wean off the Levophed after a short time. Over the first 3-4 days, we were able to wean her FiO2/PEEP down and she seemed to be improving. We were able to stop the paralysis as well. Unfortunately, at approximately day 5 post-intubation she began to have higher FiO2/PEEP requirements and increasing peak ventilator pressures. We also had to resume rocuronium paralysis. Her IV antibiotics were modified to provide greater gram negative coverage and she is currently on IV Primaxin and vancomycin. She now appeared to be exceeding our capabilities at [facility]. Discussions were undertaken with Dr. Urena ([employer]) at [facility] and she was willing to take her in transfer for higher level of care. (2) Pneumonia Status: Acute Hospital Course & Plan: Possibly due to influenza A, but may have secondary bacterial pneumonia. She was initially started on Tamiflu and IV Rocephin, Zithromax, vancomycin. Her antibiotics have been further modified and she is currently on IV Primaxin and vancomycin. Her cultures have been negative. (3) Influenza A Status: Acute Hospital Course & Plan: She did test positive for influenza A. She has been on Tamiflu at renal dosing. (4) Sepsis Status: Acute Hospital Course & Plan: She did present with fever and elevated lactate level. She also required an infusion of norepinephrine for a short time as noted above. She is now off vasopressors. Blood cultures were negative. (5) Acute renal failure Status: Acute Hospital Course & Plan: She did have an initial increase in her creatinine, which responded to IV fluids and blood pressure support. Her creatinine did return to normal at 1.0, but did start to rise once again. Her creatinine at the time of transfer is 2.0. Her medications are renal dosed for estimated GFR ~30. (6) Seizure disorder Status: Chronic Hospital Course & Plan: She is on chronic treatment with topiramate, which is being given through the feeding tube. (7) Hypokalemia Status: Acute Hospital Course & Plan: Resolved. (8) Hypocalcemia Status: Acute Hospital Course & Plan: She has been receiving calcium intermittently. Departure Weight (Pounds): 238 Weight (Ounces): 2.0 Result Diagram: 04/22/1844704/22/18447 Item Value Date Time Sodium Level 132 mmol/L L 04/15/18 1656 Potassium Level 3.3 mmol/L L 04/15/18 1656 Chloride Level 102 mmol/L 04/15/18 1656 Carbon Dioxide Level 20 mmol/L L 04/15/18 1656 Blood Urea Nitrogen 37 mg/dl H 04/15/18 1656 Creatinine 2.10 mg/dl H 04/15/18 1656 Random Glucose 210 mg/dl H 04/15/18 1656 Glomerular Filtration Rate Calc 24.6 04/15/18 1656 Lactate 2.2 mmol/L H 04/15/18 1740 Calcium Level 7.6 mg/dl L 04/15/18 1656 Total Bilirubin 0.4 mg/dl 04/15/18 1656 Aspartate Amino Transf (AST/SGOT) 230 U/L H 04/15/18 1656 Alanine Aminotransferase (ALT/SGPT) 70 U/L H 04/15/18 1656 Alkaline Phosphatase 146 U/L H 04/15/18 1656 Total Protein 7.0 g/dl 04/15/18 1656 Albumin 3.2 g/dl L 04/15/18 1656 Lipase 481 U/L H 04/15/18 1740 Human Chorionic Gonadotropin, Qual Negative 04/15/18 2308 Lactate 1.8 mmol/L 04/16/18 0626 Lactate 1.7 mmol/L 04/15/18 2308 Sodium Level 141 mmol/L 04/16/18 1405 Potassium Level 3.1 mmol/L L 04/16/18 1405 Chloride Level 121 mmol/L H 04/16/18 1405 Carbon Dioxide Level 16 mmol/L L 04/16/18 1405 Blood Urea Nitrogen 25 mg/dl H 04/16/18 1405 Creatinine 1.00 mg/dl 04/16/18 1405 Glomerular Filtration Rate Calc 58.0 04/16/18 1405 Random Glucose 190 mg/dl H 04/16/18 1405 Calcium Level 5.2 mg/dl *L 04/16/18 1405 Magnesium Level 2.0 mg/dl 04/16/18 1405 Total Bilirubin 0.2 mg/dl 04/16/18 1405 Aspartate Amino Transf (AST/SGOT) 179 U/L H 04/16/18 1405 Alanine Aminotransferase (ALT/SGPT) 60 U/L H 04/16/18 1405 Alkaline Phosphatase 132 U/L H 04/16/18 1405 Total Protein 4.2 g/dl L 04/16/18 1405 Albumin 1.8 g/dl L 04/16/18 1405 Sodium Level 137 mmol/L 04/16/18 0520 Chloride Level 112 mmol/L H 04/16/18 0520 Potassium Level 3.5 mmol/L 04/16/18 0520 Carbon Dioxide Level 19 mmol/L L 04/16/18 0520 Blood Urea Nitrogen 31 mg/dl H 04/16/18 0520 Creatinine 1.30 mg/dl H 04/16/18 0520 Glomerular Filtration Rate Calc 42.8 04/16/18 0520 Random Glucose 190 mg/dl H 04/16/18 0520 Calcium Level 6.6 mg/dl *L 04/16/18 0520 Magnesium Level 1.5 mg/dl L 04/16/18 0520 Total Bilirubin 0.3 mg/dl 04/16/18 0520 Aspartate Amino Transf (AST/SGOT) 227 U/L H 04/16/18 0520 Alanine Aminotransferase (ALT/SGPT) 69 U/L H 04/16/18 0520 Alkaline Phosphatase 165 U/L H 04/16/18 0520 Total Protein 5.4 g/dl L 04/16/18 0520 Albumin 2.3 g/dl L 04/16/18 0520 Sodium Level 142 mmol/L 04/17/18 0520 Potassium Level 3.6 mmol/L 04/17/18 0520 Chloride Level 110 mmol/L H 04/17/18 0520 Carbon Dioxide Level 30 mmol/L 04/17/18 0520 Blood Urea Nitrogen 27 mg/dl H 04/17/18 0520 Creatinine 1.40 mg/dl H 04/17/18 0520 Glomerular Filtration Rate Calc 39.3 04/17/18 0520 Random Glucose 268 mg/dl H 04/17/18 0520 Calcium Level 6.2 mg/dl *L 04/17/18 0520 Magnesium Level 2.4 mg/dl H 04/17/18 0520 Total Bilirubin 0.1 mg/dl L 04/17/18 0520 Aspartate Amino Transf (AST/SGOT) 181 U/L H 04/17/18 0520 Alanine Aminotransferase (ALT/SGPT) 62 U/L H 04/17/18 0520 Alkaline Phosphatase 205 U/L H 04/17/18 0520 Total Protein 4.6 g/dl L 04/17/18 0520 Albumin 2.0 g/dl L 04/17/18 0520 Sodium Level 145 mmol/L 04/18/18 0522 Potassium Level 3.7 mmol/L 04/18/18 0522 Chloride Level 116 mmol/L H 04/18/18 0522 Carbon Dioxide Level 30 mmol/L 04/18/18 0522 Blood Urea Nitrogen 32 mg/dl H 04/18/18 0522 Glomerular Filtration Rate Calc 31.4 04/18/18 0522 Creatinine 1.70 mg/dl H 04/18/18 0522 Random Glucose 195 mg/dl H 04/18/18 0522 Calcium Level 6.4 mg/dl *L 04/18/18 0522 Total Bilirubin 0.1 mg/dl L 04/18/18 0522 Aspartate Amino Transf (AST/SGOT) 138 U/L H 04/18/18 0522 Alanine Aminotransferase (ALT/SGPT) 51 U/L 04/18/18 0522 Alkaline Phosphatase 267 U/L H 04/18/18 0522 Total Protein 4.8 g/dl L 04/18/18 0522 Albumin 2.1 g/dl L 04/18/18 0522 Albumin 2.1 g/dl L 04/19/18 0451 Total Protein 4.7 g/dl L 04/19/18 0451 Alkaline Phosphatase 268 U/L H 04/19/18 0451 Alanine Aminotransferase (ALT/SGPT) 48 U/L 04/19/18 0451 Aspartate Amino Transf (AST/SGOT) 110 U/L H 04/19/18 0451 Total Bilirubin 0.3 mg/dl 04/19/18 0451 Calcium Level 6.4 mg/dl *L 04/19/18 0451 Random Glucose 201 mg/dl H 04/19/18 0451 Glomerular Filtration Rate Calc 29.4 04/19/18 0451 Creatinine 1.80 mg/dl H 04/19/18 0451 Blood Urea Nitrogen 47 mg/dl H 04/19/18 0451 Carbon Dioxide Level 26 mmol/L 04/19/18 0451 Chloride Level 122 mmol/L H 04/19/18 0451 Potassium Level 3.7 mmol/L 04/19/18 0451 Sodium Level 147 mmol/L H 04/19/18 0451 Albumin 2.4 g/dl L 04/20/18 0453 Total Protein 5.1 g/dl L 04/20/18 0453 Alkaline Phosphatase 229 U/L H 04/20/18 0453 Alanine Aminotransferase (ALT/SGPT) 52 U/L 04/20/18 0453 Aspartate Amino Transf (AST/SGOT) 103 U/L H 04/20/18 0453 Total Bilirubin 0.4 mg/dl 04/20/18 0453 Magnesium Level 3.1 mg/dl H 04/20/18 0453 Calcium Level 7.2 mg/dl L 04/20/18 0453 Random Glucose 176 mg/dl H 04/20/18 0453 Glomerular Filtration Rate Calc 33.7 04/20/18 0453 Creatinine 1.60 mg/dl H 04/20/18 0453 Blood Urea Nitrogen 50 mg/dl H 04/20/18 0453 Carbon Dioxide Level 25 mmol/L 04/20/18 0453 Chloride Level 123 mmol/L H 04/20/18 0453 Potassium Level 3.5 mmol/L 04/20/18 0453 Sodium Level 149 mmol/L H 04/20/18 0453 Sodium Level 146 mmol/L H 04/21/18 0500 Potassium Level 3.2 mmol/L L 04/21/18 0500 Chloride Level 119 mmol/L H 04/21/18 0500 Carbon Dioxide Level 26 mmol/L 04/21/18 0500 Blood Urea Nitrogen 44 mg/dl H 04/21/18 0500 Creatinine 1.70 mg/dl H 04/21/18 0500 Glomerular Filtration Rate Calc 31.4 04/21/18 0500 Random Glucose 165 mg/dl H 04/21/18 0500 Calcium Level 7.0 mg/dl *L 04/21/18 0500 Total Bilirubin 0.6 mg/dl 04/21/18 0500 Aspartate Amino Transf (AST/SGOT) 72 U/L H 04/21/18 0500 Alanine Aminotransferase (ALT/SGPT) 41 U/L 04/21/18 0500 Alkaline Phosphatase 207 U/L H 04/21/18 0500 Total Protein 4.9 g/dl L 04/21/18 0500 Blood Gas Puncture Site Left radial 04/16/18 0314 Blood Gas Patient Temperature 102.2 DEGREES 04/16/18 0314 Arterial Blood pH 7.24 L 04/16/18 0314 Arterial Blood Partial Pressure CO2 36 mmHg 04/16/18 0314 Arterial Blood Partial Pressure O2 53 mmHg L 04/16/18 0314 Arterial Blood HCO3 15 mmol/L L 04/16/18 0314 Arterial Blood Oxygen Saturation 76 % L 04/16/18 0314 Arterial Blood Base Excess -12.0 mmol/L 04/16/18 0314 Miguel Angel Test Acceptable 04/16/18 0314 Oxygen Liters/Minute 100 04/16/18 0314 Blood Gas Puncture Site Left radial 04/16/18 0559 Blood Gas Patient Temperature 101.3 DEGREES 04/16/18 0559 Arterial Blood pH 7.33 L 04/16/18 0559 Arterial Blood Partial Pressure CO2 27 mmHg L 04/16/18 0559 Arterial Blood Partial Pressure O2 48 mmHg *L 04/16/18 0559 Arterial Blood HCO3 14 mmol/L *L 04/16/18 0559 Arterial Blood Base Excess -11.0 mmol/L 04/16/18 0559 Miguel Angel Test Acceptable 04/16/18 0559 Oxygen Liters/Minute 100 04/16/18 0559 Arterial Blood Oxygen Saturation 78 % L 04/16/18 0559 Oxygen Liters/Minute 100% 04/16/18 1148 Miguel Angel Test Nt avail 04/16/18 1148 Arterial Blood Base Excess -12.0 mmol/L 04/16/18 1148 Arterial Blood Oxygen Saturation 84 % L 04/16/18 1148 Arterial Blood HCO3 17 mmol/L L 04/16/18 1148 Arterial Blood Partial Pressure O2 61 mmHg 04/16/18 1148 Arterial Blood Partial Pressure CO2 48 mmHg H 04/16/18 1148 Arterial Blood pH 7.16 *L 04/16/18 1148 Blood Gas Patient Temperature 36.7 DEGREES 04/16/18 1148 Blood Gas Puncture Site Line 04/16/18 1148 Blood Gas Puncture Site Line 04/16/18 1400 Blood Gas Patient Temperature 36.5 DEGREES 04/16/18 1400 Arterial Blood pH 7.16 *L 04/16/18 1400 Arterial Blood Partial Pressure CO2 51 mmHg *H 04/16/18 1400 Arterial Blood Partial Pressure O2 68 mmHg 04/16/18 1400 Arterial Blood HCO3 18 mmol/L L 04/16/18 1400 Arterial Blood Oxygen Saturation 88 % L 04/16/18 1400 Arterial Blood Base Excess -11.0 mmol/L 04/16/18 1400 Miguel Angel Test Nt avail 04/16/18 1400 Oxygen Liters/Minute 100 04/16/18 1400 Oxygen Liters/Minute 100% 04/16/18 1601 Miguel Angel Test Nt avail 04/16/18 1601 Arterial Blood Base Excess -10.0 mmol/L 04/16/18 1601 Arterial Blood Oxygen Saturation 87 % L 04/16/18 1601 Arterial Blood HCO3 20 mmol/L 04/16/18 1601 Arterial Blood Partial Pressure O2 73 mmHg 04/16/18 1601 Arterial Blood pH 7.08 *L 04/16/18 1601 Blood Gas Puncture Site Line 04/16/18 1601 Arterial Blood Partial Pressure CO2 66 mmHg *H 04/16/18 1601 Blood Gas Puncture Site Line 04/16/18 1831 Blood Gas Patient Temperature 37.0 DEGREES 04/16/18 1831 Arterial Blood pH 7.19 *L 04/16/18 1831 Arterial Blood Partial Pressure CO2 54 mmHg *H 04/16/18 1831 Arterial Blood Partial Pressure O2 62 mmHg 04/16/18 1831 Arterial Blood HCO3 21 mmol/L 04/16/18 1831 Arterial Blood Oxygen Saturation 85 % L 04/16/18 1831 Arterial Blood Base Excess -7.0 mmol/L 04/16/18 1831 Miguel Angel Test Nt avail 04/16/18 1831 Oxygen Liters/Minute 100 04/16/18 1831 Oxygen Liters/Minute 90% 04/16/18 2100 Miguel Angel Test Nt avail 04/16/18 2100 Arterial Blood Base Excess -6.0 mmol/L 04/16/18 2100 Arterial Blood Oxygen Saturation 85 % L 04/16/18 2100 Arterial Blood HCO3 22 mmol/L 04/16/18 2100 Arterial Blood Partial Pressure O2 61 mmHg 04/16/18 2100 Arterial Blood Partial Pressure CO2 56 mmHg *H 04/16/18 2100 Arterial Blood pH 7.21 L 04/16/18 2100 Blood Gas Patient Temperature 98.8 DEGREES 04/16/18 2100 Blood Gas Puncture Site Line 04/16/18 2100 Blood Gas Puncture Site Line 04/16/18 2355 Blood Gas Patient Temperature 98.8 DEGREES 04/16/18 2355 Arterial Blood pH 7.20 L 04/16/18 2355 Arterial Blood Partial Pressure CO2 61 mmHg *H 04/16/18 2355 Arterial Blood Partial Pressure O2 68 mmHg 04/16/18 2355 Arterial Blood HCO3 24 mmol/L 04/16/18 2355 Arterial Blood Oxygen Saturation 88 % L 04/16/18 2355 Arterial Blood Base Excess -4.0 mmol/L 04/16/18 2355 Miguel Angel Test Nt avail 04/16/18 2355 Oxygen Liters/Minute 90% 04/16/18 2355 Oxygen Liters/Minute 80% 04/17/18 0530 Miguel Angel Test Nt avail 04/17/18 0530 Arterial Blood Base Excess 0.0 mmol/L 04/17/18 0530 Arterial Blood Oxygen Saturation 83 % L 04/17/18 0530 Arterial Blood HCO3 26 mmol/L 04/17/18 0530 Arterial Blood Partial Pressure O2 54 mmHg L 04/17/18 0530 Arterial Blood Partial Pressure CO2 55 mmHg *H 04/17/18 0530 Arterial Blood pH 7.29 L 04/17/18 0530 Blood Gas Patient Temperature 98.6 DEGREES 04/17/18 0530 Blood Gas Puncture Site Line 04/17/18 0530 Blood Gas Puncture Site Line 04/17/18 0942 Blood Gas Patient Temperature 37.3 DEGREES 04/17/18 0942 Arterial Blood pH 7.23 L 04/17/18 0942 Arterial Blood Partial Pressure CO2 70 mmHg *H 04/17/18 0942 Arterial Blood Partial Pressure O2 59 mmHg L 04/17/18 0942 Arterial Blood HCO3 29 mmol/L H 04/17/18 0942 Arterial Blood Oxygen Saturation 83 % L 04/17/18 0942 Arterial Blood Base Excess 2.0 mmol/L 04/17/18 0942 Miguel Angel Test Nt avail 04/17/18 0942 Oxygen Liters/Minute 60% 04/17/18 0942 Blood Gas Puncture Site Line 04/17/18 1323 Blood Gas Patient Temperature 37.6 DEGREES 04/17/18 1323 Arterial Blood pH 7.30 L 04/17/18 1323 Arterial Blood Partial Pressure CO2 58 mmHg *H 04/17/18 1323 Arterial Blood Partial Pressure O2 60 mmHg 04/17/18 1323 Arterial Blood HCO3 28 mmol/L H 04/17/18 1323 Arterial Blood Oxygen Saturation 86 % L 04/17/18 1323 Arterial Blood Base Excess 2.0 mmol/L 04/17/18 1323 Miguel Angel Test Nt avail 04/17/18 1323 Oxygen Liters/Minute 60% 04/17/18 1323 Oxygen Liters/Minute 80 04/18/18 0520 Miguel Angel Test Nt avail 04/18/18 0520 Arterial Blood Base Excess -1.0 mmol/L 04/18/18 0520 Arterial Blood Oxygen Saturation 92 % 04/18/18 0520 Arterial Blood HCO3 25 mmol/L 04/18/18 0520 Arterial Blood Partial Pressure O2 71 mmHg 04/18/18 0520 Arterial Blood Partial Pressure CO2 47 mmHg H 04/18/18 0520 Arterial Blood pH 7.34 L 04/18/18 0520 Blood Gas Patient Temperature 99.6 DEGREES 04/18/18 0520 Blood Gas Puncture Site Line 04/18/18 0520 Blood Gas Puncture Site Line 04/19/18 0452 Blood Gas Patient Temperature 99.8 DEGREES 04/19/18 0452 Arterial Blood pH 7.39 04/19/18 0452 Arterial Blood Partial Pressure CO2 37 mmHg 04/19/18 0452 Arterial Blood Partial Pressure O2 60 mmHg 04/19/18 0452 Arterial Blood HCO3 22 mmol/L 04/19/18 0452 Arterial Blood Oxygen Saturation 90 % L 04/19/18 0452 Arterial Blood Base Excess -3.0 mmol/L 04/19/18 0452 Miguel Angel Test Nt avail 04/19/18 0452 Oxygen Liters/Minute 70 04/19/18 0452 Oxygen Liters/Minute 60 04/20/18 0502 Miguel Angel Test Nt avail 04/20/18 0502 Arterial Blood Base Excess -3.0 mmol/L 04/20/18 0502 Arterial Blood Oxygen Saturation 94 % 04/20/18 0502 Arterial Blood HCO3 21 mmol/L 04/20/18 0502 Arterial Blood Partial Pressure O2 68 mmHg 04/20/18 0502 Arterial Blood Partial Pressure CO2 28 mmHg L 04/20/18 0502 Arterial Blood pH 7.48 H 04/20/18 0502 Blood Gas Patient Temperature 99.8 DEGREES 04/20/18 0502 Blood Gas Puncture Site Line 04/20/18 0502 Blood Gas Puncture Site Line 04/21/18 0500 Blood Gas Patient Temperature 100.0 DEGREES 04/21/18 0500 Arterial Blood pH 7.41 04/21/18 0500 Arterial Blood Partial Pressure CO2 34 mmHg 04/21/18 0500 Arterial Blood Partial Pressure O2 51 mmHg L 04/21/18 0500 Arterial Blood HCO3 22 mmol/L 04/21/18 0500 Arterial Blood Oxygen Saturation 85 % L 04/21/18 0500 Arterial Blood Base Excess -3.0 mmol/L 04/21/18 0500 Miguel Angel Test Nt avail 04/21/18 0500 Oxygen Liters/Minute 70% 04/21/18 0500 Blood Gas Puncture Site Line 04/21/18 2104 Blood Gas Patient Temperature 38 c DEGREES 04/21/18 2104 Arterial Blood pH 7.33 L 04/21/18 2104 Arterial Blood Partial Pressure CO2 43 mmHg H 04/21/18 2104 Arterial Blood Partial Pressure O2 65 mmHg 04/21/18 2104 Arterial Blood HCO3 23 mmol/L 04/21/18 2104 Arterial Blood Oxygen Saturation 90 % L 04/21/18 2104 Arterial Blood Base Excess -3.0 mmol/L 04/21/18 2104 Miguel Angel Test Nt avail 04/21/18 2104 Oxygen Liters/Minute 90% 04/21/18 2104 Oxygen Liters/Minute 85% 04/21/18 2320 Miguel Angel Test Nt avail 04/21/18 2320 Arterial Blood Base Excess -2.0 mmol/L 04/21/18 2320 Arterial Blood Oxygen Saturation 81 % L 04/21/18 2320 Arterial Blood HCO3 25 mmol/L 04/21/18 2320 Arterial Blood Partial Pressure O2 52 mmHg L 04/21/18 2320 Arterial Blood Partial Pressure CO2 55 mmHg *H 04/21/18 2320 Arterial Blood pH 7.26 L 04/21/18 2320 Blood Gas Patient Temperature 37.1 DEGREES 04/21/18 2320 Blood Gas Puncture Site Line 04/21/18 2320 Blood Gas Puncture Site Line 04/22/18 0200 Blood Gas Patient Temperature 37.8 DEGREES 04/22/18 0200 Arterial Blood pH 7.23 L 04/22/18 0200 Arterial Blood Partial Pressure CO2 58 mmHg *H 04/22/18 0200 Arterial Blood Partial Pressure O2 70 mmHg 04/22/18 0200 Arterial Blood HCO3 25 mmol/L 04/22/18 0200 Arterial Blood Oxygen Saturation 90 % L 04/22/18 0200 Arterial Blood Base Excess -3.0 mmol/L 04/22/18 0200 Miguel Angel Test Nt avail 04/22/18 0200 Oxygen Liters/Minute 100% 04/22/18 0200 Oxygen Liters/Minute 100% 04/22/18 0500 Miguel Angel Test Nt avail 04/22/18 0500 Arterial Blood Base Excess -2.0 mmol/L 04/22/18 0500 Arterial Blood Oxygen Saturation 93 % 04/22/18 0500 Arterial Blood HCO3 25 mmol/L 04/22/18 0500 Arterial Blood Partial Pressure O2 80 mmHg 04/22/18 0500 Arterial Blood Partial Pressure CO2 57 mmHg *H 04/22/18 0500 Arterial Blood pH 7.21 L 04/22/18 0500 Blood Gas Patient Temperature 37 DEGREES 04/22/18 0500 Blood Gas Puncture Site Line 04/22/18 0500 Blood Gas Puncture Site Right radial 04/22/18 0900 Blood Gas Patient Temperature 37.2 DEGREES 04/22/18 0900 Arterial Blood pH 7.32 L 04/22/18 0900 Arterial Blood Partial Pressure CO2 45 mmHg H 04/22/18 0900 Arterial Blood Partial Pressure O2 66 mmHg 04/22/18 0900 Arterial Blood HCO3 23 mmol/L 04/22/18 0900 Arterial Blood Oxygen Saturation 91 % L 04/22/18 0900 Arterial Blood Base Excess -3.0 mmol/L 04/22/18 0900 Miguel Angel Test Acceptable 04/22/18 0900 Oxygen Liters/Minute 100 04/22/18 0900 Albumin 2.7 g/dl L 04/22/18 0448 Total Protein 5.5 g/dl L 04/22/18 0448 Alkaline Phosphatase 170 U/L H 04/22/18 0448 Alanine Aminotransferase (ALT/SGPT) 39 U/L 04/22/18 0448 Total Bilirubin 0.6 mg/dl 04/22/18 0448 Aspartate Amino Transf (AST/SGOT) 55 U/L H 04/22/18 0448 Calcium Level 7.3 mg/dl L 04/22/18 0448 Clostridium Difficile Toxin A & B Negative 04/21/182014 Clostridium difficile Antigen Negative 04/21/182014 Influenza Virus Type A (PCR) Positive 04/15/181752 Influenza Virus Type B (PCR) Negative 04/15/18 175 Random Vancomycin Level 15.87 ug/ml 04/16/18 2310 Vancomycin Last Dose Date 04/16/18 04/16/18 2310 Vancomycin Last Dose Time 1200 04/16/18 2310 White Blood Count 2.7 k/uL L 04/15/18 1656 Hemoglobin 13.5 g/dL 04/15/18 1656 Hematocrit 38.3 % 04/15/18 1656 Platelet Count 135 K/uL L 04/15/18 1656 Platelet Count 125 K/uL L 04/16/18 0520 Hematocrit 39.7 % 04/16/18 0520 Hemoglobin 13.6 g/dL 04/16/18 0520 White Blood Count 2.5 k/uL L 04/16/18 0520 White Blood Count 2.2 k/uL L 04/17/18 0520 Hemoglobin 11.5 g/dL L 04/17/18 0520 Hematocrit 33.5 % L 04/17/18 0520 Platelet Count 97 K/uL L 04/17/18 0520 White Blood Count 2.3 k/uL L 04/18/18 0522 Hemoglobin 10.3 g/dL L 04/18/18 0522 Hematocrit 30.3 % L 04/18/18 0522 Platelet Count 99 K/uL L 04/18/18 0522 Platelet Count 105 K/uL L 04/19/18 0451 Hemoglobin 9.9 g/dL L 04/19/18 0451 Hematocrit 29.2 % L 04/19/18 0451 White Blood Count 2.5 k/uL L 04/19/18 0451 White Blood Count 3.7 k/uL L 04/20/18 0453 Hemoglobin 9.6 g/dL L 04/20/18 0453 Hematocrit 28.4 % L 04/20/18 0453 Platelet Count 99 K/uL L 04/20/18 0453 Platelet Count 98 K/uL L 04/21/18 0500 Hematocrit 25.3 % *L 04/21/18 0500 Hemoglobin 8.4 g/dL *L 04/21/18 0500 White Blood Count 4.3 k/uL L 04/21/18 0500 [facility] [address] [place] [address] KISHORE MCKEON M.D., DIRECTOR OF LABORATORY SERVICES CHERELLE PAEZ M.D., PATHOLOGIST RUN DATE: 04/21/18 Specimen Inquiry Report PAGE 1 RUN TIME: 1029 PATIENT: MARCIN BAHENA ACCT: [id number] LOC: ICU U: [id number] AGE/SX: 53/F [facility] RE04/15/[address]: DESIREE HAYDEN MD : 1965 BED: 260 DIS: STATUS: ADM IN TLOC: SPEC #: [id number] UNA: 04/15/18 STATUS: COMP REQ #: [id number] RECD: 04/15/[address]: SARAI PATRICK MD SOURCE: BLOOD PER ENTR: 04/15/18-[address]: SPDESNilson: ORDERED: CULT BLOOD Procedure Result Verified BLOOD CULTURE Final 04/21/18-1029 NO GROWTH AFTER 5 DAYS IN BOTH THE AEROBIC AND ANAEROBIC BOTTLES. [facility] *LIVE* [address] [place] [address] KISHORE MCKEON M.D., DIRECTOR OF LABORATORY SERVICES CHERELLE PAEZ M.D., PATHOLOGIST RUN DATE: 04/21/18 Specimen Inquiry Report PAGE 1 RUN TIME: 1029 PATIENT: MARCIN BAHENA Herman ACCT: [id number] LOC: ICU U: [id number] AGE/SX: 53/F ROOM: 2260 RE04/15/[address]: DESIREE HAYDEN MD : 1965 BED: 260 DIS: STATUS: ADM IN TLOC: SPEC #: [id number] UNA: 04/15/18 STATUS: ALVAREZ REQ #: [id number] RECD: 04/15/[address]: SARAI PATRICK MD SOURCE: BLOOD PER ENTR: 04/15/[address] [facility] [address]: ALIZA: ORDERED: CULT BLOOD Procedure Result Verified BLOOD CULTURE Final 04/21/18 NO GROWTH AFTER 5 DAYS IN BOTH THE AEROBIC AND ANAEROBIC BOTTLES. Imaging PATIENT NAME: Marcin Bahena : 1965 MR: [id number] V: [id number] EXAM DATE: [id number] ORDERING PHYSICIAN: SARAI PATRICK TECHNOLOGIST: Location: [facility] Patient: Marcin Bahena : 1965 Visit/Account:[id number] Date of Sevice: 04/15/2018 CT CHEST ABDOMEN PELVIS W/O CON HISTORY: febrile, hypoxic,septic,elevated liver function tests TECHNIQUE: CT imaging was obtained through the chest, abdomen and pelvis without intravenous contrast. One of the following dose optimization techniques was utilized in the performance of this exam: automated exposure control; adjustment of the mA and/or kv according to patient size; or use of iterative reconstruction technique. Specific details can be referenced in the facility's radiology CT exam operational policy. CONTRAST: None COMPARISON: None. FINDINGS: CHEST: Lower neck: Negative. Vessels: Negative. Heart and pericardium: Negative Mediastinum/hilum/lymph nodes: Mild mediastinal lymphadenopathy. Subcarinal lymph node measures 2.5 x 1.3 cm (image 42). Precarinal lymph node measures 1.9 x 1.2 cm (image 30). Lungs/pleura: Bilateral diffuse bilateral groundglass opacities. No pleural e ffusion. No pneumothorax. Bones/soft tissues: Negative. Other findings: None significant ABDOMEN/PELVIS: Hepatobiliary: Diffuse hepatic steatosis. Cholecystectomy. Spleen: Mild splenomegaly. Adrenals: 1.3 x 1.1 cm left adrenal gland nodule measuring 2 Hounsfield units consistent with an adenoma. Pancreas: Negative. Kidneys/ureters/bladder: Negative. Bowel/peritoneum/mesentery: Tiny hiatal hernia. Vessels: Negative. Lymph nodes: Negative. Pelvic genitourinary: Negative. Bones/soft tissues: Negative. Other findings: None significant IMPRESSION: 1. Imaging the chest reveals extensive bilateral groundglass opacities with mild lymphadenopathy. Recommend clinical correlation for pneumonia. 2. Imaging of the abdomen and pelvis reveals mild splenomegaly. There is a 1.3 cm left adrenal gland nodule. Report Dictated By: Justin Santoro MD at 04/15/2018 8:13 PM Report E-Signed By: Justin Santoro MD at 04/15/2018 8:29 PM [id number] PATIENT NAME: Marcin Bahena : 1965 MR: [id number] V: [id number] EXAM DATE: [id number] ORDERING PHYSICIAN: SARAI PATRICK TECHNOLOGIST: Location: [facility] Patient: Marcin Bahena : 1965 Visit/Account:[id number] Date of Sevice: 04/15/2018 CHEST SINGLE AP HISTORY: fever/cough/sob COMPARISON: None FINDINGS: Cardiomediastinal contours: Normal Lungs and pleura: Patchy bilateral lung infiltrates. No pneumothorax. Bones/soft tissues: Normal Other findings: None significant IMPRESSION: 1. Patchy bilateral lung infiltrates most consistent with pneumonia. Recommend continued radiographic surveillance to resolution. Report Dictated By: Justin Santoro MD at 04/15/2018 5:24 PM Report E-Signed By: Justin Santoro MD at 04/15/2018 5:24 PM WSN:[id number] PATIENT NAME: Marcin Bahena : 1965 MR: [id number] V: [id number] EXAM DATE: [id number] ORDERING PHYSICIAN: DESIREE HAYDEN TECHNOLOGIST: Location: [facility] Patient: Marcin Bahena : 1965 Visit/Account:[id number] Date of Sevice: 04/16/2018 Study: Single portable view of the chest. Indication: Status post intubation Comparison study: April 15, 2018 Technique: Single portable AP view the chest demonstrates the presence of an endotracheal tube with the tip 4 cm above the level of the jese. There are ex tensive bilateral confluent infiltrates present. This has worsened as compared to the previous study. There is no evidence of pleural effusion or pneumothorax. IMPRESSION: Status post intubation. There are worsening bilateral confluent diffuse infiltrates present. Report Dictated By: Landry Major at 04/16/2018 2:55 AM Report E-Signed By: Landry Major at 04/16/2018 2:57 AM WSN:[id number] PATIENT NAME: Marcin Bahena : 1965 MR: [id number] V: [id number] EXAM DATE: [id number] ORDERING PHYSICIAN: NALINI YOUNG TECHNOLOGIST: Location: [facility] Patient: Marcin Bahena : 1965 Visit/Account:[id number] Date of Sevice: 04/18/2018 AP CHEST 04/18/2018 6:00 AM. INDICATION: Intubated. RAD COMPARISON: 04/16/2018. FINDINGS: Support line and tubes are unchanged. Lung expansion is decreased with increased bibasilar atelectasis. Other bilateral mixed opacification and probable small pleural effusions are similar to prior. No pneumothorax. Heart size is likely unchanged. IMPRESSION: Decreased expansion with increased atelectasis, otherwise unchanged. Report Dictated By: Kayode Walter MD at 04/18/2018 6:26 AM Report E-Signed By: Kayode Walter MD at 04/18/2018 6:28 AM WSN:[id number] PATIENT NAME: Marcin Bahena : 1965 MR: [id number] V: [id number] EXAM DATE: ORDERING PHYSICIAN: DESIREE HAYDEN TECHNOLOGIST: Location: [facility] Patient: Marcin Bahena : 1965 Visit/Account:[id number] Date of Sevice: 04/20/2018 Study: CHEST SINGLE AP Indication: Pneumonia, intubated Comparison study: April 19, 2018 Findings: AP portable chest demonstrates presence of an endotracheal tube with the tip 4 cm above the level of the jese. There is a PICC line with the tip overlying the cavoatrial junction. There is a nasogastric tube with the tip descending below the level of the film. There are bilateral pleural effusions and basilar infiltrates present. There is no evidence of pneumothorax. IMPRESSION: There is no significant change as compared to the previous study. Report Dictated By: Landry Major at 04/20/2018 6:12 AM Report E-Signed By: Landry Major at 04/20/2018 6:14 AM WSN:[id number] PATIENT NAME: Marcin Bahena : 1965 MR: [id number] V: [id number] EXAM DATE: [id number] ORDERING PHYSICIAN: CHERELLE CROWELL TECHNOLOGIST: Location: [facility] Patient: Marcin Bahena : 1965 Visit/Account:[id number] Date of Sevice: 04/22/2018 CHEST SINGLE AP Indication: Intubated. Comparison: To 04/09/2018 Findings: Stable lines/tubes. Heart size within normal limits. Bilateral pulmonary opacities which are grossly unchanged. No pneumothorax or pleural effusion. IMPRESSION: No significant change since prior exam. Report Dictated By: Kendall Najera MD at 04/22/2018 6:27 AM Report E-Signed By: Kendall Najera MD at 04/22/2018 6:28 AM WSN:[id number] EKG PATIENT NAME: MARCIN BAHENA : [id number] MR: [id number] V: [id number] EXAM DATE: ORDERING PHYSICIAN: SARAI PATRICK TECHNOLOGIST: Test Reason : chest pain, SOB Blood Pressure : / mmHG Vent. Rate : 101 BPM Atrial Rate : 101 BPM P-R Int : 130 ms QRS Dur : 074 ms QT Int : 342 ms P-R-T Axes : 062 210 050 degrees QTc Int : 443 ms Sinus tachycardia Diffuse artifact - recommend repeat EKG Abnormal ECG No previous ECGs available Confirmed by DESIREE HAYDEN ([id number]) on 04/15/2018 9:21:17 PM Referred By: Confirmed By:DESIREE HAYDEN Condition: Critical Discharge: Another Hospital ([facility]) Time Spent: > 30 min Discharge Instructions Home Meds Reported Medications Topiramate (TOPAMAX) 25 Mg Tablet, 25 MG PO QDAY 04/15/18 Special Instructions: Patient to be transferred to [facility] ICU. Venous Thromboembolism Antithrombotics Is Pt On Any Antithrombotics?: No Problem Qualifiers (1) Pneumonia: Pneumonia type: due to unspecified organism Laterality: bilateral Lung location: lower lobe of lung Qualified Codes: J18.1 - Lobar pneumonia, unspecified organism (2) Sepsis: Sepsis type: sepsis due to unspecified organism Qualified Codes: A41.9 - Sepsis, unspecified organism DESIREE HAYDEN MD Apr 22, 2018 10:34
[2018-04-22] MEDS ORDERED: ALBUMIN HUMAN 5% 250 ML BTL 250 ML IVPB SCH (11:30)
[2018-04-22] MEDS ORDERED: FUROSEMIDE 20 MG/2 ML VIAL IVP SCH (12:30)
== END 2018-04-22 12:16 | disposition short-term general hospital (02) | DRG 870 ==
LOC: ER 17:25 → ICU 20:52
PROVIDERS: ADMIT Internal Medicine; ATTEND Internal Medicine
PROC: 5A1955Z Respiratory Ventilation, Greater than 96 Consecutive Hours (ICD-10-PCS; principal; 2018-04-16)
PROC: 0BH17EZ Insertion of Endotracheal Airway into Trachea, Via Natural or Artificial Opening (ICD-10-PCS; 2018-04-16)
PROC: 02HV33Z Insertion of Infusion Device into Superior Vena Cava, Percutaneous Approach (ICD-10-PCS; 2018-04-16)
PROC: 05JY3ZZ Inspection of Upper Vein, Percutaneous Approach (ICD-10-PCS; 2018-04-16)
DX: A41.89 Other specified sepsis (principal); J80 Acute respiratory distress syndrome; J10.08 Influenza due to other identified influenza virus with other specified pneumonia; J15.9 Unspecified bacterial pneumonia; N17.9 Acute kidney failure, unspecified; R65.20 Severe sepsis without septic shock; G40.909 Epilepsy, unspecified, not intractable, without status epilepticus; E87.6 Hypokalemia; E83.51 Hypocalcemia; E86.0 Dehydration; Z88.5 Allergy status to narcotic agent; Z88.8 Allergy status to other drugs, medicaments and biological substances; Z87.820 Personal history of traumatic brain injury
CPT/HCPCS: 36415; 36416; 36600; 71045; 71250; 74176; 80202; 82040; 82247; 82310; 82374; 82435; 82565; 82803; 82947; 82948; 83605; 83690; 83735; 84075; 84132; 84155; 84295; 84450; 84460; 84520; 84703; 85025; 87040; 87324; 87449; 87502; 93005; 94002; 94003; 94640; 94660; 94770; 99285; C1758; C9113; J0131; J0330; J0456; J0610; J0696; J0743; J1170; J1650; J1720; J1940; J1956; J2250; J2543; J2704; J3010; J3370; J3475; J3480; J7030; J7040; J7050; J7060; J7070; P9045

== ENCOUNTER → 2018-04-22 | Outpatient (REF) ==
[~2018-04-22] MED LIST: TOPI-119 PO
== END ==
LOC: AMB 10:46
PROVIDERS: ATTEND Nurse Practitioner
DX: Z02.9 Encounter for administrative examinations, unspecified (principal)